=== PATIENT | male | born 1990 | race Caucasian/White ===

== ENCOUNTER 2016-05-27 09:08 | Inpatient (IN) | payer OTHER ==
[2016-05-27 11:04] VITALS: BMI 28.5
--- NOTE | 2016-05-27 11:22 | HP ---
COWS - Scale Resting Pulse: 0= [place] 80 or Below Sweatin=Flushed/Facial Moisture Restless Observation: 3= Extraneous Movement Pupil Size: 2= Moderately Dilated Bone or Joint Aches: 2= Severe Diffuse Aches Runny Nose/ Eye Tearin= Runny Nose/Eyes GI Upset > 30mins: 3= Vomiting/Diarrhea Tremor Observation: 2= Slight Tremor Visible Yawning Observation: 2= >3x During Session Anxiety or Irritability: 2=Irritable/Anxious Goose Flesh Skin: 0=Smooth Skin COWS Score: 20 Admission ROS BHS - HPI Chief Complaint: I NEED HELP TO STOP USING HEROIN Allergies/Adverse Reactions: Allergies Allergy/AdvReac Type Severity Reaction Status Date / Time Penicillins Allergy Severe Hives Verified 05/27/16 11:19 History of Present Illness: THIS 25 YEARS OLD MALE WITH HEROIN DEPENDENCE,WITHDRAWAL SYMPTOM,LAST DETOX 03/09 TO 07/05/15 NOT COMPLETED SEVERAL ADMISSIONS IN THE PAST LONGEST PERIOD OF SOBRIETY Exam Limitations: No Limitations - Ebola screening Have you traveled outside of the country in the last 21 days: No Have you had contact with anyone from an Ebola affected area: No Have you been sick,other than usual withdrawal symptoms: No - Review of Systems Constitutional: See HPI, Chills, Loss of Appetite, Malaise, Night Sweats, Changes in sleep, Weakness EENT: reports: Tearing, Nose Congestion Respiratory: reports: No Symptoms reported Cardiac: reports: Palpitations GI: reports: Nausea, Vomiting, Abdominal cramping : reports: No Symptoms Reported Musculoskeletal: reports: Back Pain, Joint Pain, Muscle Pain Integumentary: reports: Dryness Neuro: reports: Headache, Tremors Endocrine: reports: No Symptoms Reported Hematology: reports: No Symptoms Reported Psychiatric: reports: No Sypmtoms Reported Other Systems: Reviewed and Negative Patient History - Patient Medical History Hx Anemia: No Hx Asthma: No Hx Chronic Obstructive Pulmonary Disease (COPD): No Hx Cancer: No Hx Cardiac Disorders: No Hx Congestive Heart Failure: No Hx Hypertension: No Hx Hypercholesterolemia: No Hx Pacemaker: No HX Cerebrovascular Accident: No Hx Seizures: No Hx Dementia: No Hx Diabetes: No Hx Gastrointestinal Disorders: No Hx Liver Disease: No Hx Genitourinary Disorders: No Hx Sexually Transmitted Disorders: No Hx Renal Disease (ESRD): No Hx Thyroid Disease: No Hx Human Immunodeficiency Virus (HIV): No (negative LAST 12/06 LAST) Hx Hepatitis C: No (negative) Hx Depression: No (denied ) Hx Suicide Attempt: No Hx Bipolar Disorder: No Hx Schizophrenia: No Other Medical History: NO SUICIDAL,NO HOMICIDAL - Patient Surgical History Past Surgical History: No Hx Neurologic Surgery: No Hx Cataract Extraction: No Hx Cardiac Surgery: No Hx Lung Surgery: No Hx Breast Surgery: No Hx Breast Biopsy: No Hx Abdominal Surgery: No Hx Appendectomy: No Hx Cholecystectomy: No Hx Genitourinary Surgery: No Hx Section: No Hx Orthopedic Surgery: No Anesthesia Reaction: No - PPD History Previous Implant?: Yes Documented Results: Negative w/proof Date: 07/06/15 Results: 0 mm PPD to be Administered?: No - Smoking Cessation Smoking history: Current every day smoker Have you smoked in the past 12 months: Yes Aproximately how many cigarettes per day: 20 Cigars Per Day: 0 Hx Chewing Tobacco Use: No Initiated information on smoking cessation: Yes 'Breaking Loose' booklet given: 05/27/16 - Substance & Tx. History Hx Alcohol Use: No Hx Substance Use: Yes Substance Use Type: Heroin Hx Substance Use Treatment: Yes ([facility] 07/04/15 TO 07/05/15) - Substances Abused Heroin Route: Injection Frequency: Daily Amount used: 4 bags Age of first use: 22 Date of Last Use: 05/26/16 Family Disease History - Family Disease History Family History: Denies Admission Physical Exam S - Vital Signs Vital Signs: Vital Signs - 24 hr 05/27/16 11:03 Temperature 95.8 F L Pulse Rate 70 Respiratory 16 Rate Blood Pressure 136/70 - Physical General Appearance: Yes: Moderate Distress, Tremorous, Irritable, Sweating, Anxious HEENTM: Yes: Nasal Congestion Respiratory: Yes: Lungs Clear Neck: Yes: Within Normal Limits Breast: Yes: Within Normal Limits Cardiology: Yes: Within Normal Limits, Regular Rhythm, Regular Rate, S1, S2 Abdominal: Yes: Normal Bowel Sounds, Non Tender, Flat, Soft Genitourinary: Yes: Within Normal Limits Back: Yes: Muscle Spasm Musculoskeletal: Yes: Back pain, Joint Stiffness, Muscle Pain Extremities: Yes: Tremors Neurological: Yes: 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 NML intact, Fully Oriented, Alert, Motor Strength 5/5 Integumentary: Yes: Dry Lymphatic: Yes: Within Normal Limits - Diagnostic (1) Opioid dependence with withdrawal Current Visit: No Status: Acute (2) ADHD (attention deficit hyperactivity disorder) Current Visit: No Status: Chronic (3) Nicotine dependence Current Visit: No Status: Chronic Qualifiers: Nicotine product type: cigarettes Substance use status: uncomplicated Qualified Code(s): F17.210 - Nicotine dependence, cigarettes, uncomplicated Cleared for Admission S - Detox or Rehab [facility] Level of Care: Medically Managed Detox Regimen/Protocol: Methadone S Breath Alcohol Content Breath Alcohol Content: 0 Urine Drug Screen - Results Drug Screen Negative: No Urine Drug Screen Results: OPI-Opiates
[2016-05-27] MEDS ORDERED: MENTHOL/PHENOL 1 EACH UD MM PRN (11:32)
[2016-05-27] MEDS ORDERED: hydrOXYzine PAMOATE 50 MG CAPSULE (FP) PO PRN (11:32)
[2016-05-27] MEDS ORDERED: MAG HYDROX/AL HYDROX/SIMETH 30 ML UNIT-DOSE CUP PO PRN (11:32)
[2016-05-27] MEDS ORDERED: LOPERAMIDE HCL 2 MG CAPSULE PO PRN (11:32)
[2016-05-27] MEDS ORDERED: IBUPROFEN 400 MG TABLET (FP) PO PRN (11:32)
[2016-05-27] MEDS ORDERED: diphenhydrAMINE HCL 50 MG CAPSULE PO PRN (11:32)
[2016-05-27] MEDS ORDERED: P-EPHED 60MG/TRIPROLIDI 2.5MG TABLET PO PRN (11:32)
[2016-05-27] MEDS ORDERED: guaiFENesin/D-METHORPHAN HB 10 ML UNIT-DOSE CUPS PO PRN (11:32)
[2016-05-27] MEDS ORDERED: MAGNESIUM CITRATE 300 ML BOTTLE PO PRN (11:32)
[2016-05-27] MEDS ORDERED: MAGNESIUM HYDROX 2400MG/30ML ORAL SUSPENSION 30 ML CUP PO PRN (11:32)
[2016-05-27] MEDS ORDERED: ACETAMINOPHEN 325 MG TABLET (FP) PO PRN (11:32)
[2016-05-27] MEDS ORDERED: CYCLOBENZAPRINE HCL 10 MG TABLET (FP) PO PRN (11:37)
[2016-05-27] MEDS ORDERED: METHADONE HCL 10 MG TABLET (FOR DETOX USE ONLY) PO ONE ×2 (12:30→23:00)
[2016-05-27] MEDS: diazePAM 5 MG TABLET PO PRN ×3 (12:59→22:12)
--- NOTE | 2016-05-27 16:50 | CONSULT ---
[facility] Psychiatric Consult - Data Date of interview: 05/27/16 Admission source: [facility] Identifying data: This is one of multiple admissions to [facility] for this 25 y/ o male seeking detox treatment on for heroin dependence.Patient is single without children,domiciled,unemployed and supported by relatives. Substance Abuse History: - Smoking Cessation. Smoking history: Current every day smoker. Have you smoked in the past 12 months: Yes. Aproximately how many cigarettes per day: 20. Cigars Per Day: 0. Hx Chewing Tobacco Use: No. Initiated information on smoking cessation: Yes. 'Breaking Loose' booklet given : 05/27/16. - Substance & Tx. History. Hx Alcohol Use: No. Hx Substance Use: Yes. Substance Use Type: Heroin. Hx Substance Use Treatment: Yes ([facility] TO 07/05/15). - Substances Abused. Heroin. Route: Injection. Frequency : Daily. Amount used: 4 bags. Age of first use: 22. Date of Last Use: . Confirmed by patient. Medical History: Patient endorses good general health. Psychiatric History: Diagnosed with ADHD and Bipolar Disorder.Used to be on psychostimulants (ritalin) and aripriprazole.Distant history of psychiatric hospitalizations ([facility]).Mr Lisa declares that he has no psychiatric issues at this time.Sees " no reason for psychiatric contact with psychiatrists or medications." No reported history of suicide attempts. Physical/Sexual Abuse/Trauma History: Patient denies. Additional Comment: Urine Drug Screen Results: OPI-Opiates.Noted. Mental Status Exam - Mental Status Exam Alert and Oriented to: Time, Place, Person Cognitive Function: Good Patient Appearance: Well Groomed Mood: Nervous, Anxious Affect: Mood Congruent Patient Behavior: Passive, Fatigued, Cooperative Speech Pattern: Clear Voice Loudness: Normal Thought Process: Goal Oriented Thought Disorder: Not Present Hallucinations: Denies Suicidal Ideation: Denies Homicidal Ideation: Denies Insight/Judgement: Poor Sleep: Well Appetite: Good Muscle strength/Tone: Normal Gait/Station: Normal Psychiatric Findings - Problem List ([place] 1, 2,3) (1) Opioid dependence with withdrawal Current Visit: Yes Status: Acute (2) Nicotine dependence Current Visit: Yes Status: Acute Qualifiers: Nicotine product type: cigarettes Substance use status: uncomplicated Qualified Code(s): F17.210 - Nicotine dependence, cigarettes, uncomplicated (3) ADHD (attention deficit hyperactivity disorder) Current Visit: No Status: Chronic - Initial Treatment Plan Initial Treatment Plan: Psychoeducation.Detoxification.Observation.
[2016-05-27 20:08] LABS: URINE APPEARANCE CLEAR; URINE BILIRUBIN NEGATIVE (NEGATIVE); URINE BLOOD NEGATIVE (NEGATIVE); URINE COLOR LTYELLOW; URINE GLUCOSE (UA) NEGATIVE (NEGATIVE); URINE KETONE NEGATIVE (NEGATIVE); URINE LEUK ESTERASE NEGATIVE (NEGATIVE); URINE NITRITE NEGATIVE (NEGATIVE); URINE PROTEIN NEGATIVE (NEGATIVE); URINE UROBILINOGEN NEGATIVE E.U./dl (0.2-1.0)
[2016-05-27] MEDS: cloNIDine HCL 0.1 MG TABLET PO SCH (22:10)
[2016-05-27] MEDS: THIAMINE HCL 100 MG TABLET (FP) PO SCH (22:10)
[2016-05-28] MEDS: diazePAM 5 MG TABLET PO PRN ×3 (05:54→22:11)
[2016-05-28] MEDS ORDERED: METHADONE HCL 10 MG TABLET (FOR DETOX USE ONLY) PO ONE (10:00)
[2016-05-28] MEDS: PRENATAL VITAMINS W/ FOLIC ACID TABLET (FP) PO SCH (10:29)
[2016-05-28] MEDS: cloNIDine HCL 0.1 MG TABLET PO SCH ×2 (10:29→22:09)
--- NOTE | 2016-05-28 10:44 | PN ---
BHS COWS - Scale Resting Pulse: 0= [place] 80 or Below Sweatin=Flushed/Facial Moisture Restless Observation: 3= Extraneous Movement Pupil Size: 1= Pupils >than Normal Bone or Joint Aches: 2= Severe Diffuse Aches Runny Nose/ Eye Tearin= Runny Nose/Eyes GI Upset > 30mins: 3= Vomiting/Diarrhea Tremor Observation of Outstretched Hands: 2= Slight Tremor Visible Yawning Observation: 1= 1-2x During Session Anxiety or Irritability: 2=Irritable/Anxious Goose Flesh Skin: 0=Smooth Skin COWS Score: 18 BHS Progress Note (SOAP) Subjective: ALERT,IRRITABLE,ANXIOUS,PAIN IN THE BODY AND BACK,INTERRUPTED SLEEP Objective: 05/28/16 10:42 Vital Signs Temperature 97.8 F 05/28/16 09:45 Pulse Rate 80 05/28/16 09:45 Respiratory Rate 18 05/28/16 09:45 Blood Pressure 117/68 05/28/16 09:45 O2 Sat by Pulse Oximetry (%) EKG SINUS BRADYCARDIA 50/MIN NO CHEST PAIN,NO SOB,NO DIZZINESS Laboratory Last Values Urine Color Ltyellow 05/27/16 19:30 Urine Appearance Clear 05/27/16 19:30 Urine pH 5.0 (5.0-8.0) 05/27/16 19:30 Ur Specific [place] 1.014 (1.001-1.035) 05/27/16 19:30 Urine Protein Negative (NEGATIVE) 05/27/16 19:30 Urine Glucose (UA) Negative (NEGATIVE) 05/27/16 19:30 Urine Ketones Negative (NEGATIVE) 05/27/16 19:30 Urine Blood Negative (NEGATIVE) 05/27/16 19:30 Urine Nitrite Negative (NEGATIVE) 05/27/16 19:30 Urine Bilirubin Negative (NEGATIVE) 05/27/16 19:30 Urine Urobilinogen Negative E.U./dl (0.2-1.0) 05/27/16 19:30 Ur Leukocyte Esterase Negative (NEGATIVE) 05/27/16 19:30 LABS PENDING Assessment: 05/28/16 10:43 WITHDRAWAL SYMPTOM Plan: CONTINUE DETOX
[2016-05-28 11:29] LABS: MCH 30.3 pg (25.7-33.7); MEAN CELL VOLUME 91.8 fl (80-96); MEAN PLT VOLUME 8.8 fl (7.5-11.1); PLATELET COUNT 204 K/MM3 (134-434); RDW 13.9 % (11.9-15.9); WHITE BLOOD COUNT 6.9 K/mm3 (4.0-10.0)
[2016-05-28 11:37] LABS: ALBUMIN 3.8 g/dl (3.4-5.0); ANION GAP 9 (8-16); CO2 30 mmol/L (21-32); GLUCOSE,RANDOM 96 mg/dL (74-106); SGOT/AST 19 U/L (15-37); SGPT/ALT 31 U/L (12-78)
[2016-05-28 11:39] LABS: ALK PHOS 78 U/L (45-117); BILIRUBIN,TOTAL 0.3 mg/dL (0.2-1.0); CALCIUM 9.5 mg/dL (8.5-10.1); TOT PROT 7.4 g/dl (6.4-8.2)
[2016-05-28] MEDS: THIAMINE HCL 100 MG TABLET (FP) PO SCH (22:10)
[2016-05-29] MEDS: diazePAM 5 MG TABLET PO PRN ×2 (03:48→10:20)
[2016-05-29 09:49] VITALS: BP 130/73; PULSE 69; TEMP 96.1
[2016-05-29] MEDS ORDERED: METHADONE HCL 5 MG TABLET (FOR DETOX USE ONLY) PO ONE (10:00)
[2016-05-29] MEDS: PRENATAL VITAMINS W/ FOLIC ACID TABLET (FP) PO SCH (10:21)
[2016-05-29] MEDS: cloNIDine HCL 0.1 MG TABLET PO SCH (10:21)
--- NOTE | 2016-05-29 11:56 | DS ---
[facility] Detox Discharge Summary Admission Date: 05/27/16 Discharge Date: 05/29/16 - History Present History: Opioid Dependence Pertinent Past History: ADHD - Physical Exam Results Vital Signs: Vital Signs Temperature 96.1 F L 05/29/16 09:49 Pulse Rate 69 05/29/16 09:49 Respiratory Rate 18 05/29/16 09:49 Blood Pressure 130/73 05/29/16 09:49 O2 Sat by Pulse Oximetry (%) Pertinent Admission Physical Exam Findings: WITHDRAWAL SX. Laboratory Tests 05/27/16 05/28/16 05/28/16 19:30 06:30 06:30 WBC 6.9 RBC 4.65 Hgb 14.1 Hct 42.7 MCV 91.8 MCHC 33.0 RDW 13.9 Plt Count 204 MPV 8.8 Sodium 142 Potassium 4.6 Chloride 103 Carbon Dioxide 30 Anion Gap 9 BUN 15 Creatinine 1.0 D Creat Clearance w eGFR > 60 Random Glucose 96 Calcium 9.5 Total Bilirubin 0.3 AST 19 ALT 31 Alkaline Phosphatase 78 Total Protein 7.4 Albumin 3.8 Urine Color Ltyellow Urine Appearance Clear Urine pH 5.0 Ur Specific [place] 1.014 Urine Protein Negative Urine Glucose (UA) Negative Urine Ketones Negative Urine Blood Negative Urine Nitrite Negative Urine Bilirubin Negative Urine Urobilinogen Negative Ur Leukocyte Esterase Negative RPR Titer 05/28/16 06:30 WBC RBC Hgb Hct MCV MCHC RDW Plt Count MPV Sodium Potassium Chloride Carbon Dioxide Anion Gap BUN Creatinine Creat Clearance w eGFR Random Glucose Calcium Total Bilirubin AST ALT Alkaline Phosphatase Total Protein Albumin Urine Color Urine Appearance Urine pH Ur Specific [place] Urine Protein Urine Glucose (UA) Urine Ketones Urine Blood Urine Nitrite Urine Bilirubin Urine Urobilinogen Ur Leukocyte Esterase RPR Titer Nonreactive LABS NOTED - Medication Discharge Medications: Ambulatory Orders NK [No Known Home Medication] 07/04/15 - Diagnosis (1) Nicotine dependence Current Visit: Yes Status: Acute Qualifiers: Nicotine product type: cigarettes Substance use status: uncomplicated Qualified Code(s): F17.210 - Nicotine dependence, cigarettes, uncomplicated (2) Opioid dependence with withdrawal Current Visit: Yes Status: Acute (3) ADHD (attention deficit hyperactivity disorder) Current Visit: No Status: Chronic - AMA Did Patient Leave Against Medical Advice: Yes
[2016-05-30] MEDS ORDERED: METHADONE HCL 5 MG TABLET (FOR DETOX USE ONLY) PO ONE (10:00)
[2016-05-31] MEDS ORDERED: METHADONE HCL 10 MG TABLET (FOR DETOX USE ONLY) PO ONE (10:00)
[2016-06-01] MEDS ORDERED: METHADONE HCL 5 MG TABLET (FOR DETOX USE ONLY) PO ONE (06:00)
== END 2016-05-29 11:11 | disposition left against medical advice (07) | DRG 770 ==
LOC: YASAS 09:08 → Y3N 11:34
PROVIDERS: ADMIT Internal Medicine; ATTEND Internal Medicine
PROC: HZ2ZZZZ Detoxification Services for Substance Abuse Treatment (ICD-10-PCS; principal; 2016-05-27)
DX: F11.23 Opioid dependence with withdrawal (principal); F17.210 Nicotine dependence, cigarettes, uncomplicated; F90.9 Attention-deficit hyperactivity disorder, unspecified type; R00.1 Bradycardia, unspecified
CPT/HCPCS: 36415; 80053; 81003; 85027; 86593; 93005; 93010

== ENCOUNTER 2016-07-13 10:26 | Inpatient (IN) | payer OTHER ==
[2016-07-13 11:11] VITALS: BMI 29.0
--- NOTE | 2016-07-13 12:33 | HP ---
COWS - Scale Resting Pulse: 1= [place] 81-100 Sweatin= Chills/Flushing Restless Observation: 1= Difficult to Sit Still Pupil Size: 0= Normal to Room Light Bone or Joint Aches: 2= Severe Diffuse Aches Runny Nose/ Eye Tearin= None GI Upset > 30mins: 2= Nausea/Diarrhea Tremor Observation: 2= Slight Tremor Visible Yawning Observation: 1= 1-2x During Session Anxiety or Irritability: 2=Irritable/Anxious Goose Flesh Skin: 3=Piloerection COWS Score: 15 Admission ROS S - HPI Chief Complaint: "I'm here to stop my use of Heroin and to get clean." Pt. here to Detox from Heroin. Allergies/Adverse Reactions: Allergies Allergy/AdvReac Type Severity Reaction Status Date / Time Penicillins Allergy Severe Hives Verified 07/13/16 11:18 History of Present Illness: Pt. is a 25 YO male here to Detox from Heroin. Pt. has had several previous Detox admissions at [facility]. Exam Limitations: No Limitations - Ebola screening Have you traveled outside of the country in the last 21 days: No Have you had contact with anyone from an Ebola affected area: No Have you been sick,other than usual withdrawal symptoms: No Do you have a fever: No - Review of Systems Constitutional: Chills, Diaphoresis, Fever, Loss of Appetite, Malaise, Night Sweats, Changes in sleep, Unexplained wgt Loss EENT: reports: Other (Bitter taste in mouth.) Respiratory: reports: No Symptoms reported Cardiac: reports: No Symptoms Reported GI: reports: Diarrhea, Nausea, Poor Appetite : reports: No Symptoms Reported Musculoskeletal: reports: No Symptoms Reported Integumentary: reports: No Symptoms Reported Neuro: reports: Tremors Endocrine: reports: No Symptoms Reported Hematology: reports: No Symptoms Reported Psychiatric: reports: Judgement Intact, Mood/Affect Appropiate, Orientated x3, Anxious, Depressed (Patient does not wish to see a Psychiatrist at this time.) Other Systems: Reviewed and Negative Patient History - Patient Medical History Hx Anemia: No Hx Asthma: No Hx Chronic Obstructive Pulmonary Disease (COPD): No Hx Cancer: No Hx Cardiac Disorders: No Hx Congestive Heart Failure: No Hx Hypertension: No Hx Hypercholesterolemia: No Hx Pacemaker: No HX Cerebrovascular Accident: No Hx Seizures: No Hx Dementia: No Hx Diabetes: No Hx Gastrointestinal Disorders: No Hx Liver Disease: No Hx Genitourinary Disorders: No Hx Sexually Transmitted Disorders: No Hx Renal Disease (ESRD): No Hx Thyroid Disease: No Hx Human Immunodeficiency Virus (HIV): No (negative LAST 12/06 LAST) Hx Hepatitis C: No (negative; Last Tested: Approx. 6 months ago.) Hx Depression: No (Believes to be due to drug use; no previous treatment.) Hx Suicide Attempt: No (PATIENT DENIES CURRENT SI / HI.) Hx Bipolar Disorder: No Hx Schizophrenia: No - Patient Surgical History Past Surgical History: No Hx Neurologic Surgery: No Hx Cataract Extraction: No Hx Cardiac Surgery: No Hx Lung Surgery: No Hx Breast Surgery: No Hx Breast Biopsy: No Hx Abdominal Surgery: No Hx Appendectomy: No Hx Cholecystectomy: No Hx Genitourinary Surgery: No Hx Section: No Hx Orthopedic Surgery: No Anesthesia Reaction: No - PPD History Previous Implant?: Yes Documented Results: Negative w/o proof Implanted On Prior [facility] Admission?: Yes Date: 07/06/15 Results: 0 mm PPD to be Administered?: Yes - Reproductive History Patient is a Female of Child Bearing Age (11 -55 yrs old): No (PATIENT IS MALE.) - Smoking Cessation Smoking history: Current every day smoker Have you smoked in the past 12 months: Yes Aproximately how many cigarettes per day: 20 Cigars Per Day: 0 Hx Chewing Tobacco Use: No Initiated information on smoking cessation: Yes 'Breaking Loose' booklet given: 07/13/16 (GIVEN ON UNIT.) - Substance & Tx. History Hx Alcohol Use: No Hx Substance Use: Yes Substance Use Type: Heroin Hx Substance Use Treatment: Yes (Previous Detox admissions at [facility].) - Substances Abused Heroin Route: Injection Frequency: Daily Amount used: 5 bags Age of first use: 23 Date of Last Use: 07/12/16 Family Disease History - Family Disease History Family History: Denies Admission Physical Exam S - Vital Signs Vital Signs: Vital Signs - 24 hr 07/13/16 11:07 Temperature 98.2 F Pulse Rate 92 H Respiratory 20 Rate Blood Pressure 142/90 - Physical General Appearance: Yes: No Apparent Distress, Nourished, Tremorous, Anxious HEENTM: Yes: Hearing grossly Normal, Normocephalic, Normal Voice, COREY, Pharynx Normal Respiratory: Yes: Chest Non-Tender, Lungs Clear, Normal Breath Sounds, No Respiratory Distress Neck: Yes: No masses,lesions,Nodules, Supple, Trachea in good position Breast: Yes: Breast Exam Deferred Cardiology: Yes: Regular Rhythm, Regular Rate, S1, S2 Abdominal: Yes: Normal Bowel Sounds, Non Tender, Flat, Soft Genitourinary: Yes: Within Normal Limits Back: Yes: Normal Inspection Musculoskeletal: Yes: Gait Steady, Joint Stiffness, Muscle Pain Extremities: Yes: Normal Range of Motion, Non-Tender, Tremors Neurological: Yes: Fully Oriented, Alert, Normal Mood/Affect, Normal Response Integumentary: Yes: Normal Color, Dry, Warm, Track Johns (2 noted in cubital crease of Left Arm. Both red and swollen. No tenderness, bleeding, or unusual discharge noted at either site.) Lymphatic: Yes: Within Normal Limits - Diagnostic (1) Nicotine dependence Current Visit: Yes Status: Chronic Qualifiers: Nicotine product type: cigarettes Substance use status: uncomplicated Qualified Code(s): F17.210 - Nicotine dependence, cigarettes, uncomplicated (2) Opioid dependence with withdrawal Current Visit: Yes Status: Acute (3) Abscess of left arm Current Visit: Yes Status: Acute Cleared for Admission [facility] - Detox or Rehab [facility] Level of Care: Medically Managed Detox Regimen/Protocol: Methadone [facility] Breath Alcohol Content Breath Alcohol Content: 0 Urine Drug Screen - Results Drug Screen Negative: No Urine Drug Screen Results: OPI-Opiates, OXY-Oxycodone
[2016-07-13] MEDS ORDERED: MAG HYDROX/AL HYDROX/SIMETH 30 ML UNIT-DOSE CUP PO PRN (12:53)
[2016-07-13] MEDS ORDERED: IBUPROFEN 400 MG TABLET (FP) PO PRN (12:53)
[2016-07-13] MEDS ORDERED: P-EPHED 60MG/TRIPROLIDI 2.5MG TABLET PO PRN (12:53)
[2016-07-13] MEDS ORDERED: ACETAMINOPHEN 325 MG TABLET (FP) PO PRN (12:53)
[2016-07-13] MEDS ORDERED: MAGNESIUM HYDROX 2400MG/30ML ORAL SUSPENSION 30 ML CUP PO PRN (12:53)
[2016-07-13] MEDS ORDERED: guaiFENesin/D-METHORPHAN HB 10 ML UNIT-DOSE CUPS PO PRN (12:53)
[2016-07-13] MEDS ORDERED: LOPERAMIDE HCL 2 MG CAPSULE PO PRN (12:53)
[2016-07-13] MEDS ORDERED: hydrOXYzine PAMOATE 50 MG CAPSULE (FP) PO PRN (12:53)
[2016-07-13] MEDS ORDERED: MAGNESIUM CITRATE 300 ML BOTTLE PO PRN (12:53)
[2016-07-13] MEDS ORDERED: MENTHOL/PHENOL 1 EACH UD MM PRN (12:53)
[2016-07-13] MEDS ORDERED: METHADONE HCL 10 MG TABLET (FOR DETOX USE ONLY) PO ONE ×2 (12:53→23:00)
[2016-07-13] MEDS ORDERED: NICOTINE POLACRILEX 2 MG GUM BC PRN (12:53)
[2016-07-13] MEDS ORDERED: BACITRACIN 0.9 GM PACKET ONE (13:41)
[2016-07-13] MEDS: NICOTINE 21 MG/24 HOURS TOPICAL PATCH TD SCH (13:46)
[2016-07-13] MEDS: SULFAMETHOXAZOLE/TRIMETHOPRIM 800MG/160MG D.S. TABLET PO SCH ×2 (13:46→22:30)
[2016-07-13] MEDS: diazePAM 5 MG TABLET PO PRN ×3 (13:46→22:31)
[2016-07-13] MEDS ORDERED: BACITRACIN 30 GM TUBE TOPICAL OINTMENT TP SCH (14:00)
[2016-07-13 16:49] LABS: URINE APPEARANCE CLEAR; URINE BILIRUBIN NEGATIVE (NEGATIVE); URINE BLOOD NEGATIVE (NEGATIVE); URINE COLOR LTYELLOW; URINE GLUCOSE (UA) NEGATIVE (NEGATIVE); URINE KETONE NEGATIVE (NEGATIVE); URINE LEUK ESTERASE NEGATIVE (NEGATIVE); URINE NITRITE NEGATIVE (NEGATIVE); URINE PROTEIN NEGATIVE (NEGATIVE); URINE UROBILINOGEN NEGATIVE E.U./dl (0.2-1.0)
[2016-07-13] MEDS: BACITRACIN 0.9 GM PACKET TP SCH (22:29)
[2016-07-13] MEDS: THIAMINE HCL 100 MG TABLET (FP) PO SCH (22:30)
[2016-07-13] MEDS: diphenhydrAMINE HCL 50 MG CAPSULE PO PRN (22:31)
--- NOTE | 2016-07-14 00:47 | EKG ---
Test Reason : Blood Pressure : / mmHG Vent. Rate : 051 BPM Atrial Rate : 051 BPM P-R Int : 122 ms QRS Dur : 104 ms QT Int : 404 ms P-R-T Axes : 055 077 044 degrees QTc Int : 372 ms SINUS BRADYCARDIA OTHERWISE NORMAL ECG NO PREVIOUS ECGS AVAILABLE Confirmed by YANDY YUSUF MD ([id number]) on 07/14/2016 12:46:53 AM Referred By: Confirmed By:YANDY YUSUF MD
[2016-07-14] MEDS: BACITRACIN 0.9 GM PACKET TP SCH ×3 (07:34→22:29)
[2016-07-14] MEDS ORDERED: METHADONE HCL 10 MG TABLET (FOR DETOX USE ONLY) PO ONE (10:00)
[2016-07-14 10:10] LABS: MCH 30.1 pg (25.7-33.7); MCHC 32.9 g/dl (32.0-35.9); MEAN CELL VOLUME 91.3 fl (80-96); MEAN PLT VOLUME 8.7 fl (7.5-11.1); PLATELET COUNT 179 K/MM3 (134-434); RDW 13.8 % (11.9-15.9); WHITE BLOOD COUNT 5.2 K/mm3 (4.0-10.0)
[2016-07-14 10:14] LABS: ALBUMIN 3.6 g/dl (3.4-5.0); ALK PHOS 74 U/L (45-117); ANION GAP 7 (8-16); BILIRUBIN,TOTAL 0.2 mg/dL (0.2-1.0); CALCIUM 9.1 mg/dL (8.5-10.1); CO2 27 mmol/L (21-32); CREATININE 0.9 mg/dL (0.7-1.3); GLUCOSE,RANDOM 95 mg/dL (74-106); SGOT/AST 12 U/L (15-37); SGPT/ALT 20 U/L (12-78); TOT PROT 6.9 g/dl (6.4-8.2)
[2016-07-14] MEDS: diazePAM 5 MG TABLET PO PRN ×2 (10:33→22:30)
[2016-07-14] MEDS: PRENATAL VITAMINS W/ FOLIC ACID TABLET (FP) PO SCH (10:33)
[2016-07-14] MEDS: NICOTINE 21 MG/24 HOURS TOPICAL PATCH TD SCH (11:09)
[2016-07-14] MEDS: SULFAMETHOXAZOLE/TRIMETHOPRIM 800MG/160MG D.S. TABLET PO SCH ×2 (11:09→22:29)
--- NOTE | 2016-07-14 17:26 | PN ---
BHS COWS - Scale Resting Pulse: 0= [place] 80 or Below Sweatin=Flushed/Facial Moisture Restless Observation: 1= Difficult to Sit Still Pupil Size: 0= Normal to Room Light Bone or Joint Aches: 1= Mild Discomfort Runny Nose/ Eye Tearin= Nasal Congestion GI Upset > 30mins: 0= None Tremor Observation of Outstretched Hands: 2= Slight Tremor Visible Yawning Observation: 1= 1-2x During Session Anxiety or Irritability: 2=Irritable/Anxious Goose Flesh Skin: 3=Piloerection COWS Score: 13 BHS Progress Note (SOAP) Subjective: Sweating, Interrupted Sleep. Objective: PT. A & O X 3, OBSERVED AMBULATING ON UNIT. 07/14/16 17:24 Vital Signs Temperature 96.0 F L 07/14/16 13:04 Pulse Rate 70 07/14/16 13:04 Respiratory Rate 20 07/14/16 13:04 Blood Pressure 123/77 07/14/16 13:04 O2 Sat by Pulse Oximetry (%) Laboratory Last Values WBC 5.2 K/mm3 (4.0-10.0) 07/14/16 06:15 RBC 4.60 M/mm3 (4.00-5.60) 07/14/16 06:15 Hgb 13.8 GM/dL (11.7-16.9) 07/14/16 06:15 Hct 42.0 % (35.4-49) 07/14/16 06:15 MCV 91.3 fl (80-96) 07/14/16 06:15 MCHC 32.9 g/dl (32.0-35.9) 07/14/16 06:15 RDW 13.8 % (11.9-15.9) 07/14/16 06:15 Plt Count 179 K/MM3 (134-434) 07/14/16 06:15 MPV 8.7 fl (7.5-11.1) 07/14/16 06:15 Sodium 140 mmol/L (136-145) 07/14/16 06:15 Potassium 4.7 mmol/L (3.5-5.1) 07/14/16 06:15 Chloride 106 mmol/L (98-107) 07/14/16 06:15 Carbon Dioxide 27 mmol/L (21-32) 07/14/16 06:15 Anion Gap 7 (8-16) L 07/14/16 06:15 BUN 17 mg/dL (7-18) 07/14/16 06:15 Creatinine 0.9 mg/dL (0.7-1.3) 07/14/16 06:15 Creat Clearance w eGFR > 60 (>60) 07/14/16 06:15 Random Glucose 95 mg/dL (74-106) 07/14/16 06:15 Calcium 9.1 mg/dL (8.5-10.1) 07/14/16 06:15 Total Bilirubin 0.2 mg/dL (0.2-1.0) D 07/14/16 06:15 AST 12 U/L (15-37) L D 07/14/16 06:15 ALT 20 U/L (12-78) D 07/14/16 06:15 Alkaline Phosphatase 74 U/L (45-117) 07/14/16 06:15 Total Protein 6.9 g/dl (6.4-8.2) 07/14/16 06:15 Albumin 3.6 g/dl (3.4-5.0) 07/14/16 06:15 Urine Color Ltyellow 07/13/16 16:28 Urine Appearance Clear 07/13/16 16:28 Urine pH 6.0 (5.0-8.0) 07/13/16 16:28 Ur Specific [place] 1.023 (1.001-1.035) 07/13/16 16:28 Urine Protein Negative (NEGATIVE) 07/13/16 16:28 Urine Glucose (UA) Negative (NEGATIVE) 07/13/16 16:28 Urine Ketones Negative (NEGATIVE) 07/13/16 16:28 Urine Blood Negative (NEGATIVE) 07/13/16 16:28 Urine Nitrite Negative (NEGATIVE) 07/13/16 16:28 Urine Bilirubin Negative (NEGATIVE) 07/13/16 16:28 Urine Urobilinogen Negative E.U./dl (0.2-1.0) 07/13/16 16:28 Ur Leukocyte Esterase Negative (NEGATIVE) 07/13/16 16:28 RPR Titer Nonreactive (NONREACTIVE) 07/14/16 06:15 LABS NOTED. Assessment: WITHDRAWAL SYMPTOMS. Plan: CONTINUE DETOX.
[2016-07-14] MEDS: diphenhydrAMINE HCL 50 MG CAPSULE PO PRN (22:29)
[2016-07-14] MEDS: THIAMINE HCL 100 MG TABLET (FP) PO SCH (22:29)
[2016-07-15] MEDS: BACITRACIN 0.9 GM PACKET TP SCH ×3 (06:10→22:32)
[2016-07-15] MEDS ORDERED: METHADONE HCL 5 MG TABLET (FOR DETOX USE ONLY) PO ONE (10:00)
[2016-07-15] MEDS: SULFAMETHOXAZOLE/TRIMETHOPRIM 800MG/160MG D.S. TABLET PO SCH ×2 (10:38→22:32)
[2016-07-15] MEDS: PRENATAL VITAMINS W/ FOLIC ACID TABLET (FP) PO SCH (10:38)
[2016-07-15] MEDS: diazePAM 5 MG TABLET PO PRN ×2 (10:38→22:32)
[2016-07-15] MEDS: NICOTINE 21 MG/24 HOURS TOPICAL PATCH TD SCH (10:38)
--- NOTE | 2016-07-15 11:25 | PN ---
BHS COWS - Scale Resting Pulse: 0= [place] 80 or Below Sweatin= Chills/Flushing Restless Observation: 3= Extraneous Movement Pupil Size: 2= Moderately Dilated Bone or Joint Aches: 4=Acute Joint/Muscle Pain Runny Nose/ Eye Tearin= Nasal Congestion GI Upset > 30mins: 1= Stomach Cramp Tremor Observation of Outstretched Hands: 2= Slight Tremor Visible Yawning Observation: 2= >3x During Session Anxiety or Irritability: 2=Irritable/Anxious Goose Flesh Skin: 0=Smooth Skin COWS Score: 18 BHS Progress Note (SOAP) Subjective: ANXIETY, SWEATS/CHILLS. Objective: 07/15/16 11:25 Vital Signs Temperature 96.8 F L 07/15/16 11:12 Pulse Rate 67 07/15/16 11:12 Respiratory Rate 19 07/15/16 11:12 Blood Pressure 145/73 07/15/16 11:12 O2 Sat by Pulse Oximetry (%) Laboratory Last Values WBC 5.2 K/mm3 (4.0-10.0) 07/14/16 06:15 RBC 4.60 M/mm3 (4.00-5.60) 07/14/16 06:15 Hgb 13.8 GM/dL (11.7-16.9) 07/14/16 06:15 Hct 42.0 % (35.4-49) 07/14/16 06:15 MCV 91.3 fl (80-96) 07/14/16 06:15 MCHC 32.9 g/dl (32.0-35.9) 07/14/16 06:15 RDW 13.8 % (11.9-15.9) 07/14/16 06:15 Plt Count 179 K/MM3 (134-434) 07/14/16 06:15 MPV 8.7 fl (7.5-11.1) 07/14/16 06:15 Sodium 140 mmol/L (136-145) 07/14/16 06:15 Potassium 4.7 mmol/L (3.5-5.1) 07/14/16 06:15 Chloride 106 mmol/L (98-107) 07/14/16 06:15 Carbon Dioxide 27 mmol/L (21-32) 07/14/16 06:15 Anion Gap 7 (8-16) L 07/14/16 06:15 BUN 17 mg/dL (7-18) 07/14/16 06:15 Creatinine 0.9 mg/dL (0.7-1.3) 07/14/16 06:15 Creat Clearance w eGFR > 60 (>60) 07/14/16 06:15 Random Glucose 95 mg/dL (74-106) 07/14/16 06:15 Calcium 9.1 mg/dL (8.5-10.1) 07/14/16 06:15 Total Bilirubin 0.2 mg/dL (0.2-1.0) D 07/14/16 06:15 AST 12 U/L (15-37) L D 07/14/16 06:15 ALT 20 U/L (12-78) D 07/14/16 06:15 Alkaline Phosphatase 74 U/L (45-117) 07/14/16 06:15 Total Protein 6.9 g/dl (6.4-8.2) 07/14/16 06:15 Albumin 3.6 g/dl (3.4-5.0) 07/14/16 06:15 Urine Color Ltyellow 07/13/16 16:28 Urine Appearance Clear 07/13/16 16:28 Urine pH 6.0 (5.0-8.0) 07/13/16 16:28 Ur Specific [place] 1.023 (1.001-1.035) 07/13/16 16:28 Urine Protein Negative (NEGATIVE) 07/13/16 16:28 Urine Glucose (UA) Negative (NEGATIVE) 07/13/16 16:28 Urine Ketones Negative (NEGATIVE) 07/13/16 16:28 Urine Blood Negative (NEGATIVE) 07/13/16 16:28 Urine Nitrite Negative (NEGATIVE) 07/13/16 16:28 Urine Bilirubin Negative (NEGATIVE) 07/13/16 16:28 Urine Urobilinogen Negative E.U./dl (0.2-1.0) 07/13/16 16:28 Ur Leukocyte Esterase Negative (NEGATIVE) 07/13/16 16:28 RPR Titer Nonreactive (NONREACTIVE) 07/14/16 06:15 Assessment: 07/15/16 11:25 WITHDRAWAL SX Plan: CONTINUE DETOX
[2016-07-15] MEDS: THIAMINE HCL 100 MG TABLET (FP) PO SCH (22:31)
[2016-07-15] MEDS: diphenhydrAMINE HCL 50 MG CAPSULE PO PRN (22:33)
[2016-07-16] MEDS: BACITRACIN 0.9 GM PACKET TP SCH ×3 (06:16→22:46)
[2016-07-16] MEDS ORDERED: METHADONE HCL 5 MG TABLET (FOR DETOX USE ONLY) PO ONE (10:00)
[2016-07-16] MEDS: PRENATAL VITAMINS W/ FOLIC ACID TABLET (FP) PO SCH (10:42)
[2016-07-16] MEDS: SULFAMETHOXAZOLE/TRIMETHOPRIM 800MG/160MG D.S. TABLET PO SCH ×2 (10:42→22:46)
[2016-07-16] MEDS: NICOTINE 21 MG/24 HOURS TOPICAL PATCH TD SCH (10:42)
--- NOTE | 2016-07-16 11:59 | PN ---
BHS Progress Note (SOAP) Subjective: DECREASED ANXIETY,SWEATS/CHILLS. Objective: 07/16/16 11:58 Vital Signs Temperature 95.9 F L 07/16/16 10:53 Pulse Rate 54 L 07/16/16 10:53 Respiratory Rate 20 07/16/16 10:53 Blood Pressure 126/75 07/16/16 10:53 O2 Sat by Pulse Oximetry (%) Assessment: 07/16/16 11:58 WITHDRAWAL SX Plan: CONTINUE DETOX
[2016-07-16] MEDS: diphenhydrAMINE HCL 50 MG CAPSULE PO PRN (22:46)
[2016-07-16] MEDS: THIAMINE HCL 100 MG TABLET (FP) PO SCH (22:46)
[2016-07-17] MEDS: BACITRACIN 0.9 GM PACKET TP SCH (06:39)
--- NOTE | 2016-07-17 09:51 | DS ---
[facility] Detox Discharge Summary Admission Date: 07/13/16 Discharge Date: 07/17/16 - History Present History: Opioid Dependence Additional Comments: ALERT O X 3. NAD. PT WANTS TO FOLLOW UP WITH DSS TODAYFOR LONG-TERM PLACEMENT. Pertinent Past History: UNREMARKABLE PMHX HX ADHD - Physical Exam Results Vital Signs: Vital Signs Temperature 96.3 F L 07/17/16 06:55 Pulse Rate 63 07/17/16 06:55 Respiratory Rate 18 07/17/16 06:55 Blood Pressure 124/72 07/17/16 06:55 O2 Sat by Pulse Oximetry (%) Pertinent Admission Physical Exam Findings: WITHDRAWAL SX Laboratory Last Values WBC 5.2 K/mm3 (4.0-10.0) 07/14/16 06:15 RBC 4.60 M/mm3 (4.00-5.60) 07/14/16 06:15 Hgb 13.8 GM/dL (11.7-16.9) 07/14/16 06:15 Hct 42.0 % (35.4-49) 07/14/16 06:15 MCV 91.3 fl (80-96) 07/14/16 06:15 MCHC 32.9 g/dl (32.0-35.9) 07/14/16 06:15 RDW 13.8 % (11.9-15.9) 07/14/16 06:15 Plt Count 179 K/MM3 (134-434) 07/14/16 06:15 MPV 8.7 fl (7.5-11.1) 07/14/16 06:15 Sodium 140 mmol/L (136-145) 07/14/16 06:15 Potassium 4.7 mmol/L (3.5-5.1) 07/14/16 06:15 Chloride 106 mmol/L (98-107) 07/14/16 06:15 Carbon Dioxide 27 mmol/L (21-32) 07/14/16 06:15 Anion Gap 7 (8-16) L 07/14/16 06:15 BUN 17 mg/dL (7-18) 07/14/16 06:15 Creatinine 0.9 mg/dL (0.7-1.3) 07/14/16 06:15 Creat Clearance w eGFR > 60 (>60) 07/14/16 06:15 Random Glucose 95 mg/dL (74-106) 07/14/16 06:15 Calcium 9.1 mg/dL (8.5-10.1) 07/14/16 06:15 Total Bilirubin 0.2 mg/dL (0.2-1.0) D 07/14/16 06:15 AST 12 U/L (15-37) L D 07/14/16 06:15 ALT 20 U/L (12-78) D 07/14/16 06:15 Alkaline Phosphatase 74 U/L (45-117) 07/14/16 06:15 Total Protein 6.9 g/dl (6.4-8.2) 07/14/16 06:15 Albumin 3.6 g/dl (3.4-5.0) 07/14/16 06:15 Urine Color Ltyellow 07/13/16 16:28 Urine Appearance Clear 07/13/16 16:28 Urine pH 6.0 (5.0-8.0) 07/13/16 16:28 Ur Specific [place] 1.023 (1.001-1.035) 07/13/16 16:28 Urine Protein Negative (NEGATIVE) 07/13/16 16:28 Urine Glucose (UA) Negative (NEGATIVE) 07/13/16 16:28 Urine Ketones Negative (NEGATIVE) 07/13/16 16:28 Urine Blood Negative (NEGATIVE) 07/13/16 16:28 Urine Nitrite Negative (NEGATIVE) 07/13/16 16:28 Urine Bilirubin Negative (NEGATIVE) 07/13/16 16:28 Urine Urobilinogen Negative E.U./dl (0.2-1.0) 07/13/16 16:28 Ur Leukocyte Esterase Negative (NEGATIVE) 07/13/16 16:28 RPR Titer Nonreactive (NONREACTIVE) 07/14/16 06:15 Hepatitis C Antibody 0.1 s/co ratio (0.0-0.9) 07/14/16 06:15 - Treatment Hospital Course: Detox Protocol Followed, Detoxed Safely, Responded well, Discharged Condition Good - Medication Discharge Medications: Ambulatory Orders NK [No Known Home Medication] 07/04/15 - Diagnosis (1) Opioid dependence with withdrawal Current Visit: Yes Status: Acute (2) Nicotine dependence Current Visit: Yes Status: Chronic Qualifiers: Nicotine product type: cigarettes Substance use status: uncomplicated Qualified Code(s): F17.210 - Nicotine dependence, cigarettes, uncomplicated (3) Abscess of left arm Current Visit: Yes Status: Acute (4) ADHD (attention deficit hyperactivity disorder) Current Visit: Yes Status: Chronic - AMA Did Patient Leave Against Medical Advice: No
[2016-07-17] MEDS ORDERED: METHADONE HCL 10 MG TABLET (FOR DETOX USE ONLY) PO ONE (10:00)
[2016-07-17 10:11] VITALS: BP 136/81; PULSE 90; TEMP 96.5
[2016-07-18] MEDS ORDERED: METHADONE HCL 5 MG TABLET (FOR DETOX USE ONLY) PO ONE (06:00)
== END 2016-07-17 09:27 | disposition home or self-care (01) | DRG 773 ==
LOC: YASAS 10:26 → Y3N 12:16
PROVIDERS: ADMIT Internal Medicine; ATTEND Internal Medicine
PROC: HZ2ZZZZ Detoxification Services for Substance Abuse Treatment (ICD-10-PCS; principal; 2016-07-13)
DX: F11.23 Opioid dependence with withdrawal (principal); F17.210 Nicotine dependence, cigarettes, uncomplicated; F90.9 Attention-deficit hyperactivity disorder, unspecified type; L02.413 Cutaneous abscess of right upper limb
CPT/HCPCS: 36415; 80053; 81003; 85027; 86593; 93005; 93010

== ENCOUNTER 2016-09-29 12:09 | Inpatient (IN) | payer OTHER ==
[2016-09-29 14:56] VITALS: BMI 27.1
--- NOTE | 2016-09-29 15:39 | HP ---
COWS - Scale Resting Pulse: 1= [place] 81-100 Sweatin= Chills/Flushing Restless Observation: 3= Extraneous Movement Pupil Size: 2= Moderately Dilated Bone or Joint Aches: 4=Acute Joint/Muscle Pain Runny Nose/ Eye Tearin= Runny Nose/Eyes GI Upset > 30mins: 3= Vomiting/Diarrhea Tremor Observation: 1= Tremor [place], Not Seen Yawning Observation: 1= 1-2x During Session Anxiety or Irritability: 2=Irritable/Anxious Goose Flesh Skin: 0=Smooth Skin COWS Score: 20 Admission ROS BHS - HPI Chief Complaint: DETOX TX FOR HEROIN DEPENDENCE Allergies/Adverse Reactions: Allergies Allergy/AdvReac Type Severity Reaction Status Date / Time Penicillins Allergy Severe Hives Verified 09/29/16 15:22 History of Present Illness: 26 Y/O MALE WITH A HX OF HEROIN AND MARIJUANA DEPENDENCE SEEKING DETOX [place] Exam Limitations: No Limitations - Ebola screening Have you traveled outside of the country in the last 21 days: No Have you had contact with anyone from an Ebola affected area: No Have you been sick,other than usual withdrawal symptoms: No - Review of Systems Constitutional: Chills, Night Sweats, Changes in sleep, Unintentional Wgt. Loss EENT: reports: Tearing, Nose Congestion, Dental Problems (MISSING/CRACKED TEETH/ EXTRACTIONS) Respiratory: reports: No Symptoms reported Cardiac: reports: Lightheadedness GI: reports: Constipated, Diarrhea, Nausea, Poor Fluid Intake, Vomiting : reports: Dysuria Musculoskeletal: reports: Back Pain, Joint Pain, Muscle Pain Integumentary: reports: Bruising (IVD INJ SITES ON BOTH ELBOWS) Neuro: reports: Headache (HX MIGRAINES), Numbness, Tingling, Tremors, Dizziness Endocrine: reports: No Symptoms Reported Hematology: reports: No Symptoms Reported Psychiatric: reports: Orientated x3, Anxious, Depressed Other Systems: Reviewed and Negative Patient History - Patient Medical History Hx Anemia: No Hx Asthma: No Hx Chronic Obstructive Pulmonary Disease (COPD): No Hx Cancer: No Hx Cardiac Disorders: No Hx Congestive Heart Failure: No Hx Hypertension: No Hx Hypercholesterolemia: No Hx Pacemaker: No HX Cerebrovascular Accident: No Hx Seizures: No Hx Dementia: No Hx Diabetes: No Hx Gastrointestinal Disorders: No Hx Liver Disease: No Hx Genitourinary Disorders: No Hx Sexually Transmitted Disorders: No Hx Renal Disease (ESRD): No Hx Thyroid Disease: No Hx Human Immunodeficiency Virus (HIV): No (NEGATIVE HX;06/2016) Hx Hepatitis C: No (NEGATIVE HX;06/2016) Hx Depression: Yes (ADHD) Hx Suicide Attempt: No (DENIES) Hx Bipolar Disorder: No Hx Schizophrenia: No - Patient Surgical History Past Surgical History: No Hx Neurologic Surgery: No Hx Cataract Extraction: No Hx Cardiac Surgery: No Hx Lung Surgery: No Hx Breast Surgery: No Hx Breast Biopsy: No Hx Abdominal Surgery: No Hx Appendectomy: No Hx Cholecystectomy: No Hx Genitourinary Surgery: No Hx Orthopedic Surgery: No Anesthesia Reaction: No - PPD History Previous Implant?: Yes Documented Results: Negative w/proof Implanted On Prior [facility] Admission?: Yes Date: 07/15/16 Results: 0 mm PPD to be Administered?: No - Reproductive History Patient is a Female of Child Bearing Age (11 -55 yrs old): No (MALE) - Smoking Cessation Smoking history: Current every day smoker Have you smoked in the past 12 months: Yes Aproximately how many cigarettes per day: 10 Cigars Per Day: 0 Hx Chewing Tobacco Use: No Initiated information on smoking cessation: Yes 'Breaking Loose' booklet given: 09/29/16 - Substance & Tx. History Hx Alcohol Use: No (DENIES) Hx Substance Use: Yes (HEROIN/MARIJUANA) Substance Use Type: Heroin, Marijuana Hx Substance Use Treatment: Yes ([facility]OX) - Substances Abused Heroin Route: Injection Frequency: Daily Amount used: 4-10 bags Age of first use: 22 Date of Last Use: 09/28/16 Marijuana/Hashish Route: Smoking Frequency: 1-2 times per week Amount used: $10 Age of first use: 15 Date of Last Use: 09/29/16 Family Disease History - Family Disease History Family Disease History: Other: Mother (HTN;ADDICTION) Admission Physical Exam BHS - Vital Signs Vital Signs: Vital Signs - 24 hr 09/29/16 14:54 Temperature 97.1 F L Pulse Rate 89 Respiratory 89 H Rate Blood Pressure 131/82 - Physical General Appearance: Yes: Moderate Distress, Irritable, Anxious HEENTM: Yes: EOMI, Normocephalic, COREY, Pharynx Normal Respiratory: Yes: Chest Non-Tender, Lungs Clear, Normal Breath Sounds, No Respiratory Distress Neck: Yes: Supple, Trachea in good position Breast: Yes: Breast Exam Deferred Cardiology: Yes: Regular Rhythm, Regular Rate, S1, S2 Abdominal: Yes: Normal Bowel Sounds, Non Tender, Flat, Soft Genitourinary: Yes: Other (N/C) Back: Yes: Within Normal Limits Musculoskeletal: Yes: full range of Motion, Gait Steady Extremities: Yes: Normal Range of Motion, Non-Tender Neurological: Yes: customer solutions coordinator II-XII NML intact, Fully Oriented, Alert, Motor Strength 5/5 Integumentary: Yes: Dry, Warm, Track Ba (ON BOTH ELBOWS) Lymphatic: Yes: Within Normal Limits - Diagnostic (1) Opioid dependence with withdrawal Current Visit: Yes Status: Acute (2) Nicotine dependence Current Visit: Yes Status: Acute Qualifiers: Nicotine product type: cigarettes Substance use status: in withdrawal Qualified Code(s): F17.213 - Nicotine dependence, cigarettes, with withdrawal (3) Cannabis dependence, uncomplicated Current Visit: Yes Status: Acute (4) Track ba due to intravenous drug abuse Current Visit: Yes Status: Acute Comment: BOTH ELBOWS Cleared for Admission [facility] - Detox or Rehab [facility] Level of Care: Medically Managed Detox Regimen/Protocol: Methadone [facility] Breath Alcohol Content Breath Alcohol Content: 0 Urine Drug Screen - Results Drug Screen Negative: No Urine Drug Screen Results: THC-Marijuana, OPI-Opiates
[2016-09-29] MEDS ORDERED: MENTHOL/PHENOL 1 EACH UD MM PRN (15:50)
[2016-09-29] MEDS ORDERED: guaiFENesin/D-METHORPHAN HB 10 ML UNIT-DOSE CUPS PO PRN (15:50)
[2016-09-29] MEDS ORDERED: MAG HYDROX/AL HYDROX/SIMETH 30 ML UNIT-DOSE CUP PO PRN (15:50)
[2016-09-29] MEDS ORDERED: diphenhydrAMINE HCL 50 MG CAPSULE PO PRN (15:50)
[2016-09-29] MEDS ORDERED: P-EPHED 60MG/TRIPROLIDI 2.5MG TABLET PO PRN (15:50)
[2016-09-29] MEDS ORDERED: ACETAMINOPHEN 325 MG TABLET (FP) PO PRN (15:50)
[2016-09-29] MEDS ORDERED: MAGNESIUM HYDROX 2400MG/30ML ORAL SUSPENSION 30 ML CUP PO PRN (15:50)
[2016-09-29] MEDS ORDERED: LOPERAMIDE HCL 2 MG CAPSULE PO PRN (15:50)
[2016-09-29] MEDS ORDERED: MAGNESIUM CITRATE 300 ML BOTTLE PO PRN (15:50)
[2016-09-29] MEDS ORDERED: IBUPROFEN 400 MG TABLET (FP) PO PRN (15:50)
[2016-09-29] MEDS ORDERED: NICOTINE POLACRILEX 2 MG GUM BUC PRN (15:52)
[2016-09-29] MEDS ORDERED: hydrOXYzine PAMOATE 25 MG CAPSULE (FP) PO PRN (15:53)
[2016-09-29] MEDS ORDERED: METHADONE HCL 10 MG TABLET (FOR DETOX USE ONLY) PO ONE ×2 (17:00→23:00)
[2016-09-29] MEDS: diazePAM 5 MG TABLET PO PRN ×2 (18:04→22:51)
[2016-09-29] MEDS: NICOTINE 14 MG/24 HOURS TOPICAL PATCH TD SCH (18:05)
[2016-09-29 21:26] LABS: URINE APPEARANCE CLEAR; URINE BILIRUBIN NEGATIVE (NEGATIVE); URINE BLOOD NEGATIVE (NEGATIVE); URINE COLOR LTYELLOW; URINE GLUCOSE (UA) NEGATIVE (NEGATIVE); URINE KETONE NEGATIVE (NEGATIVE); URINE LEUK ESTERASE NEGATIVE (NEGATIVE); URINE NITRITE NEGATIVE (NEGATIVE); URINE PROTEIN NEGATIVE (NEGATIVE); URINE UROBILINOGEN NEGATIVE E.U./dl (0.2-1.0)
[2016-09-29] MEDS: BACITRACIN 0.9 GM PACKET TP SCH (22:51)
[2016-09-29] MEDS: THIAMINE HCL 100 MG TABLET (FP) PO SCH (22:51)
[2016-09-30 10:00] LABS: MCH 30.9 pg (25.7-33.7); MCHC 33.5 g/dl (32.0-35.9); MEAN CELL VOLUME 92.2 fl (80-96); MEAN PLT VOLUME 9.5 fl (7.5-11.1); PLATELET COUNT 190 K/MM3 (134-434); RDW 14.1 % (11.9-15.9); WHITE BLOOD COUNT 7.1 K/mm3 (4.0-10.0)
[2016-09-30] MEDS ORDERED: METHADONE HCL 10 MG TABLET (FOR DETOX USE ONLY) PO ONE (10:00)
[2016-09-30] MEDS: NICOTINE 14 MG/24 HOURS TOPICAL PATCH TD SCH (10:14)
[2016-09-30] MEDS: PRENATAL VITAMINS W/ FOLIC ACID TABLET (FP) PO SCH (10:14)
[2016-09-30] MEDS: diazePAM 5 MG TABLET PO PRN ×3 (10:15→22:07)
[2016-09-30 10:22] LABS: ALBUMIN 4.6 g/dl (3.4-5.0); ALK PHOS 79 U/L (45-117); ANION GAP 12 (8-16); BILIRUBIN,TOTAL 0.7 mg/dL (0.2-1.0); CALCIUM 9.4 mg/dL (8.5-10.1); CO2 25 mmol/L (21-32); COCKROFT - GAULT 154.24; CREATININE 0.9 mg/dL (0.7-1.3); GLUCOSE,RANDOM 91 mg/dL (74-106); SGOT/AST 21 U/L (15-37); SGPT/ALT 21 U/L (12-78); TOT PROT 8.1 g/dl (6.4-8.2)
--- NOTE | 2016-09-30 10:38 | PN ---
BHS COWS - Scale Resting Pulse: 0= [place] 80 or Below Sweatin= Chills/Flushing Restless Observation: 1= Difficult to Sit Still Pupil Size: 1= Pupils >than Normal Bone or Joint Aches: 2= Severe Diffuse Aches Runny Nose/ Eye Tearin= Nasal Congestion GI Upset > 30mins: 1= Stomach Cramp Tremor Observation of Outstretched Hands: 1= Tremor [place], Not Seen Yawning Observation: 1= 1-2x During Session Anxiety or Irritability: 1=Feels Anxious/Irritable Goose Flesh Skin: 0=Smooth Skin COWS Score: 10 S Progress Note (SOAP) Subjective: INTERRUPTED SLEEP, SWEATS Objective: 09/30/16 10:37 Vital Signs Temperature 97.5 F L 09/30/16 06:07 Pulse Rate 63 09/30/16 06:07 Respiratory Rate 18 09/30/16 06:07 Blood Pressure 107/70 09/30/16 06:07 O2 Sat by Pulse Oximetry (%) Laboratory Tests 09/29/16 09/30/16 09/30/16 18:01 06:00 06:00 WBC 7.1 D RBC 4.82 Hgb 14.9 Hct 44.4 MCV 92.2 MCHC 33.5 RDW 14.1 Plt Count 190 MPV 9.5 Sodium 137 Potassium 4.3 Chloride 100 Carbon Dioxide 25 Anion Gap 12 BUN 11 D Creatinine 0.9 Creat Clearance w eGFR > 60 Random Glucose 91 Calcium 9.4 Total Bilirubin 0.7 D AST 21 D ALT 21 Alkaline Phosphatase 79 Total Protein 8.1 Albumin 4.6 D Urine Color Ltyellow Urine Appearance Clear Urine pH 6.0 Urine Protein Negative Urine Glucose (UA) Negative Urine Ketones Negative Urine Blood Negative Urine Nitrite Negative Urine Bilirubin Negative Urine Urobilinogen Negative Ur Leukocyte Esterase Negative PT AOX3 IN NAD AMBULATING 09/30/16 10:38 Assessment: 09/30/16 10:37 WITHDRAWAL SX'S Plan: CONT. DETOX INCREASE FLUIDS
[2016-09-30] MEDS: BACITRACIN 0.9 GM PACKET TP SCH ×2 (11:07→22:07)
--- NOTE | 2016-09-30 11:18 | EKG ---
Test Reason : Blood Pressure : / mmHG Vent. Rate : 059 BPM Atrial Rate : 059 BPM P-R Int : 124 ms QRS Dur : 110 ms QT Int : 396 ms P-R-T Axes : 060 078 046 degrees QTc Int : 392 ms SINUS BRADYCARDIA WITH SINUS ARRHYTHMIA OTHERWISE NORMAL ECG WHEN COMPARED WITH ECG OF 13-JUL-2016 13:53, NO SIGNIFICANT CHANGE WAS FOUND Confirmed by HENRIETTA ENAMORADO, LION ([id number]) on 09/30/2016 11:17:53 AM Referred By: Confirmed By:LION SHRESTHA MD
--- NOTE | 2016-09-30 15:18 | CONSULT ---
[facility] Psychiatric Consult - Data Date of interview: 09/30/16 Admission source: [facility] Identifying data: Another admission to [facility] for this 26 y/o male seeking detox treatment,on ,for heroin and marijuana dependence.Patient is single without children,currently undomiciled,unemployed and supported by relatives. Substance Abuse History: - Smoking Cessation. Smoking history: Current every day smoker. Have you smoked in the past 12 months: Yes. Aproximately how many cigarettes per day: 10. Cigars Per Day: 0. Hx Chewing Tobacco Use: No. Initiated information on smoking cessation: Yes. 'Breaking Loose' booklet given : 09/29/16. - Substance & Tx. History. Hx Alcohol Use: No (DENIES). Hx Substance Use: Yes (HEROIN/MARIJUANA). Substance Use Type: Heroin, Marijuana. Hx Substance Use Treatment: Yes ([facility]OX). - Substances Abused. Heroin. Route: Injection. Frequency: Daily. Amount used: 4-10 bags. Age of first use: 22. Date of Last Use: 09/28/16. Marijuana/Hashish. Route: Smoking. Frequency: 1-2 times per week. Amount used: $10. Age of first use: 15. Date of Last Use: 09/29/16. Confirmed by patient. Medical History: Patient endorses good general health. Psychiatric History: Last psychiatric hospitalization was in 2005 at [facility] for " behavioral disturbances ".Diagnosed with ADHD and Bipolar Disorder.Past history of exposure to prescribed psychostimulants (ritalin) and aripriprazole.Mr Gonzalez has stopped going for psychiatric OPD care.No reported history of suicide attempts. Physical/Sexual Abuse/Trauma History: Patient denies. Additional Comment: Urine Drug Screen Results: THC-Marijuana, OPI-Opiates.Noted. Mental Status Exam - Mental Status Exam Alert and Oriented to: Time, Place Cognitive Function: Good Patient Appearance: Well Groomed (athletic fit) Mood: Hopeful, Euthymic Affect: Appropriate, Normal Range Patient Behavior: Appropriate, Cooperative Speech Pattern: Clear, Appropriate Voice Loudness: Normal Thought Process: Goal Oriented Thought Disorder: Not Present Hallucinations: Denies Suicidal Ideation: Denies Homicidal Ideation: Denies Insight/Judgement: Poor Sleep: Poorly Appetite: Good Muscle strength/Tone: Normal Gait/Station: Normal Psychiatric Findings - Problem List ([place] 1, 2,3) (1) Cannabis dependence, uncomplicated Current Visit: Yes Status: Acute (2) Opioid dependence with withdrawal Current Visit: Yes Status: Acute (3) Nicotine dependence Current Visit: Yes Status: Acute Qualifiers: Nicotine product type: cigarettes Substance use status: in withdrawal Qualified Code(s): F17.213 - Nicotine dependence, cigarettes, with withdrawal (4) ADHD (attention deficit hyperactivity disorder) Current Visit: No Status: Chronic Comment: History. (5) Substance induced mood disorder Current Visit: Yes Status: Acute (6) Track ba due to intravenous drug abuse Current Visit: Yes Status: Acute Comment: BOTH ELBOWS (7) Insomnia Current Visit: Yes Status: Acute - Initial Treatment Plan Initial Treatment Plan: Psychoeducation.Detoxification.Trazodone 100 mg po hs at patient's request.Mr Gonzalez reports a past history of adequate response to trazodone for the management of his insomnia.Patient is made aware of the potential for priapism and he is instructed to stop the medication/seek immediate attention if occurrence of painful/prolonged erection.He agrees with this careplan.Observation.
[2016-09-30] MEDS: traZODone HCL 100 MG TABLET (FP) PO SCH (22:07)
[2016-09-30] MEDS: THIAMINE HCL 100 MG TABLET (FP) PO SCH (22:07)
--- NOTE | 2016-10-01 09:27 | PN ---
BHS COWS - Scale Resting Pulse: 0= [place] 80 or Below Sweatin=Flushed/Facial Moisture Restless Observation: 1= Difficult to Sit Still Pupil Size: 0= Normal to Room Light Bone or Joint Aches: 1= Mild Discomfort Runny Nose/ Eye Tearin= Runny Nose/Eyes GI Upset > 30mins: 0= None Tremor Observation of Outstretched Hands: 2= Slight Tremor Visible Yawning Observation: 2= >3x During Session Anxiety or Irritability: 2=Irritable/Anxious Goose Flesh Skin: 0=Smooth Skin COWS Score: 12 BHS Progress Note (SOAP) Subjective: shakes sweats agitation interrupted sleep Objective: 10/01/16 09:26 Vital Signs Temperature 97.7 F 10/01/16 06:00 Pulse Rate 53 L 10/01/16 06:00 Respiratory Rate 16 10/01/16 06:00 Blood Pressure 118/54 10/01/16 06:00 O2 Sat by Pulse Oximetry (%) Laboratory Tests 09/29/16 09/30/16 09/30/16 18:01 06:00 06:00 WBC 7.1 D RBC 4.82 Hgb 14.9 Hct 44.4 MCV 92.2 MCHC 33.5 RDW 14.1 Plt Count 190 MPV 9.5 Sodium 137 Potassium 4.3 Chloride 100 Carbon Dioxide 25 Anion Gap 12 BUN 11 D Creatinine 0.9 Creat Clearance w eGFR > 60 Random Glucose 91 Calcium 9.4 Total Bilirubin 0.7 D AST 21 D ALT 21 Alkaline Phosphatase 79 Total Protein 8.1 Albumin 4.6 D Urine Color Ltyellow Urine Appearance Clear Urine pH 6.0 Ur Specific [place] 1.015 Urine Protein Negative Urine Glucose (UA) Negative Urine Ketones Negative Urine Blood Negative Urine Nitrite Negative Urine Bilirubin Negative Urine Urobilinogen Negative Ur Leukocyte Esterase Negative RPR Titer 09/30/16 06:00 WBC RBC Hgb Hct MCV MCHC RDW Plt Count MPV Sodium Potassium Chloride Carbon Dioxide Anion Gap BUN Creatinine Creat Clearance w eGFR Random Glucose Calcium Total Bilirubin AST ALT Alkaline Phosphatase Total Protein Albumin Urine Color Urine Appearance Urine pH Ur Specific [place] Urine Protein Urine Glucose (UA) Urine Ketones Urine Blood Urine Nitrite Urine Bilirubin Urine Urobilinogen Ur Leukocyte Esterase RPR Titer Nonreactive awake/alert ambulating no acute distress Assessment: 10/01/16 09:27 withdrawal sx Plan: continue detox increase fluids
[2016-10-01] MEDS ORDERED: METHADONE HCL 5 MG TABLET (FOR DETOX USE ONLY) PO ONE (10:00)
[2016-10-01] MEDS: BACITRACIN 0.9 GM PACKET TP SCH ×2 (10:10→23:02)
[2016-10-01] MEDS: PRENATAL VITAMINS W/ FOLIC ACID TABLET (FP) PO SCH (10:10)
[2016-10-01] MEDS: diazePAM 5 MG TABLET PO PRN ×3 (10:11→23:02)
[2016-10-01] MEDS: NICOTINE 14 MG/24 HOURS TOPICAL PATCH TD SCH (10:12)
[2016-10-01] MEDS: THIAMINE HCL 100 MG TABLET (FP) PO SCH (23:02)
[2016-10-01] MEDS: traZODone HCL 100 MG TABLET (FP) PO SCH (23:02)
--- NOTE | 2016-10-02 09:46 | PN ---
BHS Progress Note (SOAP) Subjective: little sweats i would like to be d/c tomorrow i am feeling alot better. Objective: 10/02/16 09:57 Vital Signs Temperature 97.7 F 10/02/16 07:10 Pulse Rate 43 L 10/02/16 07:10 Respiratory Rate 16 10/02/16 07:10 Blood Pressure 117/56 10/02/16 07:10 O2 Sat by Pulse Oximetry (%) Laboratory Tests 09/29/16 09/30/16 09/30/16 18:01 06:00 06:00 WBC 7.1 D RBC 4.82 Hgb 14.9 Hct 44.4 MCV 92.2 MCHC 33.5 RDW 14.1 Plt Count 190 MPV 9.5 Sodium 137 Potassium 4.3 Chloride 100 Carbon Dioxide 25 Anion Gap 12 BUN 11 D Creatinine 0.9 Creat Clearance w eGFR > 60 Random Glucose 91 Calcium 9.4 Total Bilirubin 0.7 D AST 21 D ALT 21 Alkaline Phosphatase 79 Total Protein 8.1 Albumin 4.6 D Urine Color Ltyellow Urine Appearance Clear Urine pH 6.0 Ur Specific [place] 1.015 Urine Protein Negative Urine Glucose (UA) Negative Urine Ketones Negative Urine Blood Negative Urine Nitrite Negative Urine Bilirubin Negative Urine Urobilinogen Negative Ur Leukocyte Esterase Negative RPR Titer 09/30/16 06:00 WBC RBC Hgb Hct MCV MCHC RDW Plt Count MPV Sodium Potassium Chloride Carbon Dioxide Anion Gap BUN Creatinine Creat Clearance w eGFR Random Glucose Calcium Total Bilirubin AST ALT Alkaline Phosphatase Total Protein Albumin Urine Color Urine Appearance Urine pH Ur Specific [place] Urine Protein Urine Glucose (UA) Urine Ketones Urine Blood Urine Nitrite Urine Bilirubin Urine Urobilinogen Ur Leukocyte Esterase RPR Titer Nonreactive awake/alert ambulating no acute distress Assessment: 10/02/16 10:05 withdrawal sx Plan: continue detox as ordered d/c in am
[2016-10-02] MEDS ORDERED: METHADONE HCL 5 MG TABLET (FOR DETOX USE ONLY) PO ONE (10:00)
[2016-10-02] MEDS ORDERED: METHADONE HCL 10 MG TABLET (FOR DETOX USE ONLY) PO ONE (10:00)
[2016-10-02] MEDS: PRENATAL VITAMINS W/ FOLIC ACID TABLET (FP) PO SCH (10:21)
[2016-10-02] MEDS: BACITRACIN 0.9 GM PACKET TP SCH ×2 (10:21→22:13)
[2016-10-02] MEDS: NICOTINE 14 MG/24 HOURS TOPICAL PATCH TD SCH (10:23)
[2016-10-02] MEDS: THIAMINE HCL 100 MG TABLET (FP) PO SCH (22:13)
[2016-10-02] MEDS: traZODone HCL 100 MG TABLET (FP) PO SCH (22:13)
[2016-10-03] MEDS ORDERED: METHADONE HCL 5 MG TABLET (FOR DETOX USE ONLY) PO ONE (06:00)
[2016-10-03 07:13] VITALS: BP 126/61; PULSE 98; TEMP 97.5
--- NOTE | 2016-10-03 08:27 | DS ---
[facility] Detox Discharge Summary Admission Date: 09/29/16 Discharge Date: 10/03/16 - History Present History: Cannabis Dependence, Opioid Dependence - Physical Exam Results Vital Signs: Vital Signs Temperature 97.5 F L 10/03/16 06:00 Pulse Rate 98 H 10/03/16 06:00 Respiratory Rate 18 10/03/16 06:00 Blood Pressure 126/61 10/03/16 06:00 O2 Sat by Pulse Oximetry (%) - Treatment Hospital Course: Detox Protocol Followed, Detoxed Safely, Responded well, Discharged Condition Good, Rehab Referral Accepted - Medication Discharge Medications: Ambulatory Orders Trazodone HCl 100 mg PO HS #30 tablet 09/30/16 - Diagnosis (1) Cannabis dependence, uncomplicated Current Visit: Yes Status: Chronic (2) Insomnia Current Visit: Yes Status: Acute (3) Nicotine dependence Current Visit: Yes Status: Chronic Qualifiers: Nicotine product type: cigarettes Substance use status: uncomplicated Qualified Code(s): F17.210 - Nicotine dependence, cigarettes, uncomplicated (4) Opioid dependence with withdrawal Current Visit: Yes Status: Chronic (5) Substance induced mood disorder Current Visit: Yes Status: Chronic (6) Track ba due to intravenous drug abuse Current Visit: Yes Status: Chronic (7) Abscess of left arm Current Visit: No Status: Acute (8) ADHD (attention deficit hyperactivity disorder) Current Visit: No Status: Chronic (9) Drug induced sleep disorder Current Visit: No Status: Chronic (10) Substance-induced sleep disorder Current Visit: No Status: Chronic - AMA Did Patient Leave Against Medical Advice: No
[2016-10-03] MEDS ORDERED: METHADONE HCL 10 MG TABLET (FOR DETOX USE ONLY) PO ONE (10:00)
[2016-10-04] MEDS ORDERED: METHADONE HCL 5 MG TABLET (FOR DETOX USE ONLY) PO ONE (06:00)
== END 2016-10-03 10:02 | disposition home or self-care (01) | DRG 773 ==
LOC: YASAS 12:09 → Y6N 16:24
PROVIDERS: ADMIT Internal Medicine Addiction Medicine; ATTEND Internal Medicine Addiction Medicine
PROC: HZ2ZZZZ Detoxification Services for Substance Abuse Treatment (ICD-10-PCS; principal; 2016-10-03)
DX: F11.23 Opioid dependence with withdrawal (principal); F12.20 Cannabis dependence, uncomplicated; F17.210 Nicotine dependence, cigarettes, uncomplicated; F19.24 Other psychoactive substance dependence with psychoactive substance-induced mood disorder; F19.282 Other psychoactive substance dependence with psychoactive substance-induced sleep disorder; F90.9 Attention-deficit hyperactivity disorder, unspecified type; G47.00 Insomnia, unspecified; S40.812A Abrasion of left upper arm, initial encounter; X58.XXXA Exposure to other specified factors, initial encounter; Y93.9 Activity, unspecified; Z59.0 Homelessness
CPT/HCPCS: 36415; 80053; 81003; 85027; 86593; 93005; 93010

== ENCOUNTER 2016-10-28 10:10 | Inpatient (IN) | payer OTHER ==
[2016-10-28 12:26] VITALS: BMI 26.4
--- NOTE | 2016-10-28 13:26 | HP ---
COWS - Scale Resting Pulse: 0= [place] 80 or Below Sweatin=Flushed/Facial Moisture Restless Observation: 3= Extraneous Movement Pupil Size: 2= Moderately Dilated Bone or Joint Aches: 2= Severe Diffuse Aches Runny Nose/ Eye Tearin= Runny Nose/Eyes GI Upset > 30mins: 3= Vomiting/Diarrhea Tremor Observation: 2= Slight Tremor Visible Yawning Observation: 2= >3x During Session Anxiety or Irritability: 2=Irritable/Anxious Goose Flesh Skin: 0=Smooth Skin COWS Score: 20 Admission ROS BHS - HPI Chief Complaint: I NEED HELP TO STOP USING HEROIN Allergies/Adverse Reactions: Allergies Allergy/AdvReac Type Severity Reaction Status Date / Time Penicillins Allergy Severe Hives Verified 10/28/16 13:22 History of Present Illness: THIS 26 YEARS OLD MALE WITH HEROIN AND CANNABIS DEPENDENCE,SEEKING HELP TO STOP USING HEROIN,LAST DETOX 09/29/16 NICOTINE DEPENDENCE LONGEST PERIOD OF SOBRIETY 5 MONTHS Exam Limitations: No Limitations - Ebola screening Have you traveled outside of the country in the last 21 days: No Have you had contact with anyone from an Ebola affected area: No Have you been sick,other than usual withdrawal symptoms: No - Review of Systems Constitutional: Chills, Diaphoresis, Loss of Appetite, Malaise, Night Sweats, Changes in sleep, Weakness, Unintentional Wgt. Loss EENT: reports: Tearing, Nose Congestion Respiratory: reports: No Symptoms reported Cardiac: reports: Palpitations GI: reports: Diarrhea, Nausea, Vomiting, Abdominal cramping : reports: No Symptoms Reported Musculoskeletal: reports: Back Pain, Muscle Pain Integumentary: reports: Dryness Neuro: reports: Headache, Tremors Endocrine: reports: No Symptoms Reported Hematology: reports: No Symptoms Reported Psychiatric: reports: Judgement Intact, Mood/Affect Appropiate, Orientated x3, Anxious, Depressed Patient History - Patient Medical History Hx Anemia: No Hx Asthma: No Hx Chronic Obstructive Pulmonary Disease (COPD): No Hx Cancer: No Hx Cardiac Disorders: No Hx Congestive Heart Failure: No Hx Hypertension: No Hx Hypercholesterolemia: No Hx Pacemaker: No HX Cerebrovascular Accident: No Hx Seizures: No Hx Dementia: No Hx Diabetes: No Hx Gastrointestinal Disorders: No Hx Liver Disease: No Hx Genitourinary Disorders: No Hx Sexually Transmitted Disorders: No Hx Renal Disease (ESRD): No Hx Thyroid Disease: No Hx Human Immunodeficiency Virus (HIV): No (NEGATIVE HX;06/2016) Hx Hepatitis C: No (NEGATIVE HX;06/2016) Hx Depression: Yes (ADHD) Hx Suicide Attempt: No (DENIES) Hx Bipolar Disorder: No Hx Schizophrenia: No Other Medical History: ANXIETY,NO SUICIDAL,NO HOMICIDAL - Patient Surgical History Past Surgical History: No Hx Neurologic Surgery: No Hx Cataract Extraction: No Hx Cardiac Surgery: No Hx Lung Surgery: No Hx Breast Surgery: No Hx Breast Biopsy: No Hx Abdominal Surgery: No Hx Appendectomy: No Hx Cholecystectomy: No Hx Genitourinary Surgery: No Hx Section: No Hx Orthopedic Surgery: No Anesthesia Reaction: No - PPD History Previous Implant?: Yes Date: 07/15/16 Results: 0 mm PPD to be Administered?: No - Smoking Cessation Smoking history: Current every day smoker Have you smoked in the past 12 months: Yes Aproximately how many cigarettes per day: 10 Cigars Per Day: 0 Hx Chewing Tobacco Use: No Initiated information on smoking cessation: Yes 'Breaking Loose' booklet given: 10/28/16 - Substance & Tx. History Hx Alcohol Use: No Hx Substance Use: Yes Substance Use Type: Heroin Hx Substance Use Treatment: Yes (LAST [facility] 09/29/16 TO 10/03/16) - Substances Abused Heroin Route: Injection Frequency: Daily Amount used: 3-5 BAGS Age of first use: 22 Date of Last Use: 10/27/16 Marijuana/Hashish Route: Smoking Frequency: 1-3 times last 30 days Amount used: 1/2 GRAM Age of first use: 15 Date of Last Use: 10/26/16 Family Disease History - Family Disease History Family Disease History: Other: Mother (HTN;ADDICTION) Admission Physical Exam S - Vital Signs Vital Signs: Vital Signs - 24 hr 10/28/16 12:22 Temperature 96.4 F L Pulse Rate 56 L Respiratory 20 Rate Blood Pressure 119/76 - Physical General Appearance: Yes: Moderate Distress, Tremorous, Irritable, Sweating, Anxious HEENTM: Yes: Hearing grossly Normal, Normal ENT Inspection, COREY, Pharynx Normal Respiratory: Yes: Lungs Clear, Normal Breath Sounds, No Respiratory Distress Neck: Yes: Within Normal Limits, No masses,lesions,Nodules, Supple Breast: Yes: Within Normal Limits Cardiology: Yes: Within Normal Limits, Regular Rhythm, Regular Rate, S1, S2 Abdominal: Yes: Within Normal Limits, Normal Bowel Sounds, Non Tender, Flat, Soft Genitourinary: Yes: Within Normal Limits Back: Yes: Normal Inspection, Muscle Spasm Musculoskeletal: Yes: full range of Motion, Back pain, Muscle Pain Extremities: Yes: Normal Range of Motion, Tremors Neurological: Yes: medical oncologist II-XII NML intact, Fully Oriented, Alert, Motor Strength 5/5 Integumentary: Yes: Dry, Track Ba Lymphatic: Yes: Within Normal Limits - Diagnostic (1) ADHD (attention deficit hyperactivity disorder) Current Visit: No Status: Chronic Comment: History. 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 - Detox or Rehab [facility] Level of Care: Medically Managed Detox Regimen/Protocol: Methadone [facility] Breath Alcohol Content Breath Alcohol Content: 0 Urine Drug Screen - Results Drug Screen Negative: No Urine Drug Screen Results: THC-Marijuana, ANIYAH-Cocaine, OPI-Opiates, BZO- Benzodiazepines
[2016-10-28] MEDS ORDERED: MENTHOL/PHENOL 1 EACH UD MM PRN (13:35)
[2016-10-28] MEDS ORDERED: LOPERAMIDE HCL 2 MG CAPSULE PO PRN (13:35)
[2016-10-28] MEDS ORDERED: ACETAMINOPHEN 325 MG TABLET (FP) PO PRN (13:35)
[2016-10-28] MEDS ORDERED: P-EPHED 60MG/TRIPROLIDI 2.5MG TABLET PO PRN (13:35)
[2016-10-28] MEDS ORDERED: diphenhydrAMINE HCL 50 MG CAPSULE PO PRN (13:35)
[2016-10-28] MEDS ORDERED: IBUPROFEN 400 MG TABLET (FP) PO PRN (13:35)
[2016-10-28] MEDS ORDERED: guaiFENesin/D-METHORPHAN HB 10 ML UNIT-DOSE CUPS PO PRN (13:35)
[2016-10-28] MEDS ORDERED: MAG HYDROX/AL HYDROX/SIMETH 30 ML UNIT-DOSE CUP PO PRN (13:35)
[2016-10-28] MEDS ORDERED: MAGNESIUM CITRATE 300 ML BOTTLE PO PRN (13:35)
[2016-10-28] MEDS ORDERED: hydrOXYzine PAMOATE 50 MG CAPSULE (FP) PO PRN (13:35)
[2016-10-28] MEDS ORDERED: MAGNESIUM HYDROX 2400MG/30ML ORAL SUSPENSION 30 ML CUP PO PRN (13:35)
[2016-10-28] MEDS ORDERED: CYCLOBENZAPRINE HCL 10 MG TABLET (FP) PO PRN (13:39)
[2016-10-28] MEDS ORDERED: METHADONE HCL 10 MG TABLET (FOR DETOX USE ONLY) PO ONE ×2 (14:33→23:00)
[2016-10-28] MEDS: diazePAM 5 MG TABLET PO PRN ×2 (15:45→22:55)
[2016-10-28 16:25] LABS: URINE APPEARANCE CLEAR; URINE BILIRUBIN NEGATIVE (NEGATIVE); URINE BLOOD NEGATIVE (NEGATIVE); URINE COLOR YELLOW; URINE GLUCOSE (UA) NEGATIVE (NEGATIVE); URINE KETONE NEGATIVE (NEGATIVE); URINE LEUK ESTERASE NEGATIVE (NEGATIVE); URINE NITRITE NEGATIVE (NEGATIVE); URINE PROTEIN NEGATIVE (NEGATIVE); URINE UROBILINOGEN NEGATIVE E.U./dl (0.2-1.0)
[2016-10-28] MEDS: THIAMINE HCL 100 MG TABLET (FP) PO SCH (22:53)
[2016-10-28] MEDS: cloNIDine HCL 0.1 MG TABLET PO SCH (22:53)
[2016-10-29] MEDS: diazePAM 5 MG TABLET PO PRN ×2 (09:31→17:11)
[2016-10-29] MEDS: PRENATAL VITAMINS W/ FOLIC ACID TABLET (FP) PO SCH (09:31)
[2016-10-29] MEDS: cloNIDine HCL 0.1 MG TABLET PO SCH ×2 (09:31→23:33)
[2016-10-29] MEDS ORDERED: METHADONE HCL 10 MG TABLET (FOR DETOX USE ONLY) PO ONE (10:00)
[2016-10-29 10:08] LABS: MCHC 33.5 g/dl (32.0-35.9); MEAN CELL VOLUME 92.6 fl (80-96); MEAN PLT VOLUME 8.7 fl (7.5-11.1); PLATELET COUNT 195 K/MM3 (134-434); RDW 13.3 % (11.9-15.9); WHITE BLOOD COUNT 5.3 K/mm3 (4.0-10.0)
[2016-10-29 10:09] LABS: ALBUMIN 3.5 g/dl (3.4-5.0); ALK PHOS 64 U/L (45-117); ANION GAP 7 (8-16); BILIRUBIN,TOTAL 0.3 mg/dL (0.2-1.0); CALCIUM 9.2 mg/dL (8.5-10.1); CO2 30 mmol/L (21-32); COCKROFT - GAULT 169.07; CREATININE 0.8 mg/dL (0.7-1.3); GLUCOSE,RANDOM 92 mg/dL (74-106); SGOT/AST 17 U/L (15-37); SGPT/ALT 24 U/L (12-78); TOT PROT 6.7 g/dl (6.4-8.2)
--- NOTE | 2016-10-29 11:35 | PN ---
BHS COWS - Scale Resting Pulse: 0= [place] 80 or Below Sweatin= Chills/Flushing Restless Observation: 3= Extraneous Movement Pupil Size: 2= Moderately Dilated Bone or Joint Aches: 4=Acute Joint/Muscle Pain Runny Nose/ Eye Tearin= Nasal Congestion GI Upset > 30mins: 1= Stomach Cramp Tremor Observation of Outstretched Hands: 2= Slight Tremor Visible Yawning Observation: 1= 1-2x During Session Anxiety or Irritability: 2=Irritable/Anxious Goose Flesh Skin: 0=Smooth Skin COWS Score: 17 BHS Progress Note (SOAP) Subjective: ANXIETY,IRRITABILITY,SWEATS, INTERMITTENT SLEEP. Objective: 10/29/16 11:34 Vital Signs Temperature 96.1 F L 10/29/16 10:32 Pulse Rate 50 L 10/29/16 10:32 Respiratory Rate 20 10/29/16 10:32 Blood Pressure 123/77 10/29/16 10:32 O2 Sat by Pulse Oximetry (%) Laboratory Last Values WBC 5.3 K/mm3 (4.0-10.0) 10/29/16 07:00 RBC 4.46 M/mm3 (4.00-5.60) 10/29/16 07:00 Hgb 13.8 GM/dL (11.7-16.9) 10/29/16 07:00 Hct 41.3 % (35.4-49) 10/29/16 07:00 MCV 92.6 fl (80-96) 10/29/16 07:00 MCHC 33.5 g/dl (32.0-35.9) 10/29/16 07:00 RDW 13.3 % (11.9-15.9) 10/29/16 07:00 Plt Count 195 K/MM3 (134-434) 10/29/16 07:00 MPV 8.7 fl (7.5-11.1) 10/29/16 07:00 Sodium 142 mmol/L (136-145) 10/29/16 07:00 Potassium 4.9 mmol/L (3.5-5.1) 10/29/16 07:00 Chloride 105 mmol/L (98-107) 10/29/16 07:00 Carbon Dioxide 30 mmol/L (21-32) 10/29/16 07:00 Anion Gap 7 (8-16) L 10/29/16 07:00 BUN 12 mg/dL (7-18) 10/29/16 07:00 Creatinine 0.8 mg/dL (0.7-1.3) 10/29/16 07:00 Creat Clearance w eGFR > 60 (>60) 10/29/16 07:00 Random Glucose 92 mg/dL (74-106) 10/29/16 07:00 Calcium 9.2 mg/dL (8.5-10.1) 10/29/16 07:00 Total Bilirubin 0.3 mg/dL (0.2-1.0) D 10/29/16 07:00 AST 17 U/L (15-37) 10/29/16 07:00 ALT 24 U/L (12-78) 10/29/16 07:00 Alkaline Phosphatase 64 U/L (45-117) 10/29/16 07:00 Total Protein 6.7 g/dl (6.4-8.2) 10/29/16 07:00 Albumin 3.5 g/dl (3.4-5.0) D 10/29/16 07:00 Urine Color Yellow 10/28/16 15:00 Urine Appearance Clear 10/28/16 15:00 Urine pH 5.0 (5.0-8.0) 10/28/16 15:00 Ur Specific [place] 1.025 (1.005-1.025) 10/28/16 15:00 Urine Protein Negative (NEGATIVE) 10/28/16 15:00 Urine Glucose (UA) Negative (NEGATIVE) 10/28/16 15:00 Urine Ketones Negative (NEGATIVE) 10/28/16 15:00 Urine Blood Negative (NEGATIVE) 10/28/16 15:00 Urine Nitrite Negative (NEGATIVE) 10/28/16 15:00 Urine Bilirubin Negative (NEGATIVE) 10/28/16 15:00 Urine Urobilinogen Negative E.U./dl (0.2-1.0) 10/28/16 15:00 Ur Leukocyte Esterase Negative (NEGATIVE) 10/28/16 15:00 Assessment: 10/29/16 11:35 WITHDRAWAL SX Plan: CONTINUE DETOX VALIUM PRN/STD DOSES DIRECTED
--- NOTE | 2016-10-29 11:40 | EKG ---
Test Reason : Blood Pressure : / mmHG Vent. Rate : 047 BPM Atrial Rate : 047 BPM P-R Int : 112 ms QRS Dur : 116 ms QT Int : 422 ms P-R-T Axes : 061 080 052 degrees QTc Int : [address] ELEVATION, CONSIDER EARLY REPOLARIZATION BORDERLINE ECG WHEN COMPARED WITH ECG OF 29-SEP-2016 17:07, NO SIGNIFICANT CHANGE WAS FOUND Confirmed by SAMANTA LEE MD ([id number]) on 10/29/2016 11:40:10 AM Referred By: Confirmed By:SAMANTA LEE MD
--- NOTE | 2016-10-29 14:08 | CONSULT ---
[facility] Psychiatric Consult - Data Date of interview: 10/29/16 Admission source: [facility] Identifying data: Readmission to [facility] for this 26 y/o male seeking detox treatment,on ,for heroin and marijuana dependence (Utox is found positive for cocaine as well).Patient is single without children,homeless, unemployed and supported by relatives. Substance Abuse History: - Smoking Cessation. Smoking history: Current every day smoker. Have you smoked in the past 12 months: Yes. Aproximately how many cigarettes per day: 10. Cigars Per Day: 0. Hx Chewing Tobacco Use: No. Initiated information on smoking cessation: Yes. 'Breaking Loose' booklet given : 10/28/16. - Substance & Tx. History. Hx Alcohol Use: No. Hx Substance Use: Yes. Substance Use Type: Heroin. Hx Substance Use Treatment: Yes (LAST [facility] TO 10/03/16). - Substances Abused. Heroin. Route: Injection. Frequency: Daily. Amount used: 3-5 BAGS. Age of first use: 22. Date of Last Use: 10/27/16. Marijuana/Hashish. Route: Smoking. Frequency: 1-3 times last 30 days. Amount used: 1/2 GRAM. Age of first use: 15. Date of Last Use: 10/26/16 Medical History: Patient endorses good general health. Psychiatric History: Patient denies history of mental illness.He is a hostile and totally indifferent historian.Unreliable as evidenced by previous records ( from this scenario writer in 09/30/16) : last psychiatric hospitalization was in 2005 at [facility] for " behavioral disturbances ".Diagnosed with ADHD and Bipolar Disorder.Past history of exposure to prescribed psychostimulants (ritalin) and aripriprazole.Mr Gonzalez has stopped going for psychiatric OPD care.No reported history of suicide attempts. Physical/Sexual Abuse/Trauma History: Patient denies history of abuse. Additional Comment: Urine Drug Screen Results: THC-Marijuana, ANIYAH-Cocaine, OPI- Opiates, BZO-Benzodiazepines.Noted. Mental Status Exam - Mental Status Exam Alert and Oriented to: Time, Place, Person Cognitive Function: Good Patient Appearance: Well Groomed Mood: Hostile, Withdrawn, Irritable Affect: Mood Congruent Patient Behavior: Fatigued, Uncooperative Speech Pattern: Clear Voice Loudness: Normal Thought Process: Goal Oriented Thought Disorder: Not Present Hallucinations: Denies Suicidal Ideation: Denies Homicidal Ideation: Denies Insight/Judgement: Poor Sleep: Well Appetite: Good Muscle strength/Tone: Normal Gait/Station: Normal Psychiatric Findings - Problem List ([place] 1, 2,3) (1) Opioid dependence with withdrawal Current Visit: Yes Status: Acute (2) Cannabis dependence, uncomplicated Current Visit: Yes Status: Acute (3) Cocaine dependence Current Visit: Yes Status: Acute (4) Nicotine dependence Current Visit: Yes Status: Acute Qualifiers: Nicotine product type: cigarettes Substance use status: uncomplicated Qualified Code(s): F17.210 - Nicotine dependence, cigarettes, uncomplicated (5) Substance induced mood disorder Current Visit: Yes Status: Acute (6) ADHD (attention deficit hyperactivity disorder) Current Visit: No Status: Chronic Comment: History. - Initial Treatment Plan Initial Treatment Plan: Psychoeducation.Detoxification.Observation.
[2016-10-29] MEDS: THIAMINE HCL 100 MG TABLET (FP) PO SCH (23:33)
[2016-10-30] MEDS ORDERED: METHADONE HCL 5 MG TABLET (FOR DETOX USE ONLY) PO ONE (10:00)
[2016-10-30] MEDS: cloNIDine HCL 0.1 MG TABLET PO SCH ×2 (10:28→22:49)
[2016-10-30] MEDS: PRENATAL VITAMINS W/ FOLIC ACID TABLET (FP) PO SCH (10:28)
[2016-10-30] MEDS: diazePAM 5 MG TABLET PO PRN ×2 (10:29→21:18)
--- NOTE | 2016-10-30 11:53 | PN ---
BHS COWS - Scale Resting Pulse: 0= [place] 80 or Below Sweatin= Chills/Flushing Restless Observation: 3= Extraneous Movement Pupil Size: 2= Moderately Dilated Bone or Joint Aches: 2= Severe Diffuse Aches Runny Nose/ Eye Tearin= Nasal Congestion GI Upset > 30mins: 1= Stomach Cramp Tremor Observation of Outstretched Hands: 2= Slight Tremor Visible Yawning Observation: 1= 1-2x During Session Anxiety or Irritability: 2=Irritable/Anxious Goose Flesh Skin: 0=Smooth Skin COWS Score: 15 BHS Progress Note (SOAP) Subjective: ANXIETY,SWEATS/CHILLS,INTERMITTENT SLEEP. Objective: 10/30/16 11:53 Vital Signs Temperature 96.9 F L 10/30/16 10:25 Pulse Rate 51 L 10/30/16 10:25 Respiratory Rate 18 10/30/16 10:25 Blood Pressure 121/68 10/30/16 10:25 O2 Sat by Pulse Oximetry (%) Laboratory Last Values WBC 5.3 K/mm3 (4.0-10.0) 10/29/16 07:00 RBC 4.46 M/mm3 (4.00-5.60) 10/29/16 07:00 Hgb 13.8 GM/dL (11.7-16.9) 10/29/16 07:00 Hct 41.3 % (35.4-49) 10/29/16 07:00 MCV 92.6 fl (80-96) 10/29/16 07:00 MCHC 33.5 g/dl (32.0-35.9) 10/29/16 07:00 RDW 13.3 % (11.9-15.9) 10/29/16 07:00 Plt Count 195 K/MM3 (134-434) 10/29/16 07:00 MPV 8.7 fl (7.5-11.1) 10/29/16 07:00 Sodium 142 mmol/L (136-145) 10/29/16 07:00 Potassium 4.9 mmol/L (3.5-5.1) 10/29/16 07:00 Chloride 105 mmol/L (98-107) 10/29/16 07:00 Carbon Dioxide 30 mmol/L (21-32) 10/29/16 07:00 Anion Gap 7 (8-16) L 10/29/16 07:00 BUN 12 mg/dL (7-18) 10/29/16 07:00 Creatinine 0.8 mg/dL (0.7-1.3) 10/29/16 07:00 Creat Clearance w eGFR > 60 (>60) 10/29/16 07:00 Random Glucose 92 mg/dL (74-106) 10/29/16 07:00 Calcium 9.2 mg/dL (8.5-10.1) 10/29/16 07:00 Total Bilirubin 0.3 mg/dL (0.2-1.0) D 10/29/16 07:00 AST 17 U/L (15-37) 10/29/16 07:00 ALT 24 U/L (12-78) 10/29/16 07:00 Alkaline Phosphatase 64 U/L (45-117) 10/29/16 07:00 Total Protein 6.7 g/dl (6.4-8.2) 10/29/16 07:00 Albumin 3.5 g/dl (3.4-5.0) D 10/29/16 07:00 Urine Color Yellow 10/28/16 15:00 Urine Appearance Clear 10/28/16 15:00 Urine pH 5.0 (5.0-8.0) 10/28/16 15:00 Ur Specific [place] 1.025 (1.005-1.025) 10/28/16 15:00 Urine Protein Negative (NEGATIVE) 10/28/16 15:00 Urine Glucose (UA) Negative (NEGATIVE) 10/28/16 15:00 Urine Ketones Negative (NEGATIVE) 10/28/16 15:00 Urine Blood Negative (NEGATIVE) 10/28/16 15:00 Urine Nitrite Negative (NEGATIVE) 10/28/16 15:00 Urine Bilirubin Negative (NEGATIVE) 10/28/16 15:00 Urine Urobilinogen Negative E.U./dl (0.2-1.0) 10/28/16 15:00 Ur Leukocyte Esterase Negative (NEGATIVE) 10/28/16 15:00 RPR Titer Nonreactive (NONREACTIVE) 10/29/16 07:00 Assessment: 10/30/16 11:53 WITHDRAWAL SX Plan: CONTINUE DETOX
[2016-10-30] MEDS: THIAMINE HCL 100 MG TABLET (FP) PO SCH (22:49)
[2016-10-31] MEDS: PRENATAL VITAMINS W/ FOLIC ACID TABLET (FP) PO SCH (09:46)
[2016-10-31] MEDS: cloNIDine HCL 0.1 MG TABLET PO SCH (09:46)
[2016-10-31] MEDS: diazePAM 5 MG TABLET PO PRN (09:46)
[2016-10-31] MEDS ORDERED: METHADONE HCL 5 MG TABLET (FOR DETOX USE ONLY) PO ONE (10:00)
--- NOTE | 2016-10-31 10:31 | PN ---
BHS Progress Note (SOAP) Subjective: Sweating,interrupted sleep,restless Objective: 10/31/16 10:30 Vital Signs - 8 hr 10/31/16 10/31/16 03:30 06:34 Temperature 97.0 F L Pulse Rate 53 L Respiratory 18 18 Rate Blood Pressure 126/76 Laboratory Tests 10/28/16 10/29/16 10/29/16 15:00 07:00 07:00 WBC 5.3 RBC 4.46 Hgb 13.8 Hct 41.3 MCV 92.6 MCHC 33.5 RDW 13.3 Plt Count 195 MPV 8.7 Sodium 142 Potassium 4.9 Chloride 105 Carbon Dioxide 30 Anion Gap 7 L BUN 12 Creatinine 0.8 Creat Clearance w eGFR > 60 Random Glucose 92 Calcium 9.2 Total Bilirubin 0.3 D AST 17 ALT 24 Alkaline Phosphatase 64 Total Protein 6.7 Albumin 3.5 D Urine Color Yellow Urine Appearance Clear Urine pH 5.0 Ur Specific [place] 1.025 Urine Protein Negative Urine Glucose (UA) Negative Urine Ketones Negative Urine Blood Negative Urine Nitrite Negative Urine Bilirubin Negative Urine Urobilinogen Negative Ur Leukocyte Esterase Negative RPR Titer 10/29/16 07:00 WBC RBC Hgb Hct MCV MCHC RDW Plt Count MPV Sodium Potassium Chloride Carbon Dioxide Anion Gap BUN Creatinine Creat Clearance w eGFR Random Glucose Calcium Total Bilirubin AST ALT Alkaline Phosphatase Total Protein Albumin Urine Color Urine Appearance Urine pH Ur Specific [place] Urine Protein Urine Glucose (UA) Urine Ketones Urine Blood Urine Nitrite Urine Bilirubin Urine Urobilinogen Ur Leukocyte Esterase RPR Titer Nonreactive labs noted Assessment: 10/31/16 10:31 Withdrawal sx. Plan: Continue detox
[2016-10-31 10:46] VITALS: BP 127/75; PULSE 62; TEMP 97.1
[2016-11-01] MEDS ORDERED: METHADONE HCL 10 MG TABLET (FOR DETOX USE ONLY) PO ONE (10:00)
[2016-11-02] MEDS ORDERED: METHADONE HCL 5 MG TABLET (FOR DETOX USE ONLY) PO ONE (06:00)
== END 2016-10-31 11:24 | disposition left against medical advice (07) | DRG 770 ==
LOC: YASAS 10:10 → Y3N 14:28
PROVIDERS: ADMIT Internal Medicine; ATTEND Internal Medicine
PROC: HZ2ZZZZ Detoxification Services for Substance Abuse Treatment (ICD-10-PCS; principal; 2016-10-28)
DX: F11.23 Opioid dependence with withdrawal (principal); F14.20 Cocaine dependence, uncomplicated; F12.20 Cannabis dependence, uncomplicated; F17.210 Nicotine dependence, cigarettes, uncomplicated; F19.24 Other psychoactive substance dependence with psychoactive substance-induced mood disorder; F90.9 Attention-deficit hyperactivity disorder, unspecified type; F41.8 Other specified anxiety disorders; L90.5 Scar conditions and fibrosis of skin; Z59.0 Homelessness
CPT/HCPCS: 36415; 80053; 81003; 85027; 86593; 93005; 93010; J0735

== ENCOUNTER 2020-02-23 10:15 | Inpatient (IN) | payer OTHER ==
--- NOTE | 2020-02-23 10:18 | BHS.RME ---
Substance Use & Tx History - Substance Use History Heroin Substance amount: 2 grams Frequency of use: Daily Substance route: Injection (ex: intravenous or skin popping) Date of Last Use: 02/22/20 (started age 22) Nicotine Substance amount: 1/2 pack Frequency of use: Daily Substance route: Smoking Date of Last Use: 02/23/20 (started age 15) - Last Treatment Date of last treatment: 10/28/16-10/30/16 discharged AMA Treatment type: Substance Use Disorder (SHELBIE) Where was last treatment: Detox Physical/Psych/Mental Status - Behavior General Behavior: Increased activity (restlessness, agitation) Eye Contact: Normal - Cooperativeness Cooperativeness: Cooperative - Thinking Thought Processes: Tight, Logical, Goal Directed - Physical Health Problems Is patient presently having any pain?: No Does patient presently have any injuries (include location): No Does patient currently have a fever: No Is patient : No COWS - Scale Resting Pulse: 0= [place] 80 or Below Sweatin= Beads of Sweat on Face Restless Observation: 1= Difficult to Sit Still Pupil Size: 2= Moderately Dilated Bone or Joint Aches: 2= Severe Diffuse Aches Runny Nose/ Eye Tearin= Runny Nose/Eyes GI Upset > 30mins: 3= Vomiting/Diarrhea Tremor Observation: 4= Gross Tremor/Twitching Yawning Observation: 2= >3x During Session Anxiety or Irritability: 1=Feels Anxious/Irritable Goose Flesh Skin: 3=Piloerection COWS Score: 23
--- NOTE | 2020-02-23 10:44 | HP ---
COWS - Scale Resting Pulse: 0= [place] 80 or Below Sweatin= Beads of Sweat on Face Restless Observation: 1= Difficult to Sit Still Pupil Size: 2= Moderately Dilated Bone or Joint Aches: 2= Severe Diffuse Aches Runny Nose/ Eye Tearin= Runny Nose/Eyes GI Upset > 30mins: 3= Vomiting/Diarrhea Tremor Observation: 4= Gross Tremor/Twitching Yawning Observation: 2= >3x During Session Anxiety or Irritability: 1=Feels Anxious/Irritable Goose Flesh Skin: 3=Piloerection COWS Score: 23 CIWA Score - Admission Criteria [facility]ASAS Guidelines: Admission for Medically Managed Detox: Requires at least one of the followin. CIWA greater than 12 2. Seizures within the past 24 hours 3. Delirium tremens within the past 24 hours 4. Hallucinations within the past 24 hours 5. Acute intervention needed for co occurring medical disorder 6. Acute intervention needed for co occurring psychiatric disorder 7. Severe withdrawal that cannot be handled at a lower level of care (continued vomiting, continued diarrhea, abnormal vital signs) requiring intravenous medication and/or fluids 8. Admitting History and Physical - Admission Chief Complaint: Mr. Gonzalez is a 29 yo gentleman who presents to [facility] requesting detox from heroin. History of Present Illness: Mr. Gonzalez is a 29 yo gentleman who presents to [facility] requesting detox from heroin. He was sober for 3 years and relapsed 3 mos ago. PMH:PSH:Legal: none Psych: ADHD, depression, no SI, no SA Substance Use History Heroin Substance amount: 2 grams Frequency of use: Daily Substance route: Injection (ex: intravenous or skin popping) Date of Last Use: 02/22/20 (started age 22) OD x 5, last was in 2014 No narcan at home Nicotine Substance amount: 1/2 pack Frequency of use: Daily Substance route: Smoking Date of Last Use: 02/23/20 (started age 15) Suboxone 2012 to 2013 - Last Treatment Date of last treatment: 10/28/16-10/30/16 discharged AMA Treatment type: Substance Use Disorder (SHELBIE) Where was last treatment: Detox History Source: Patient Limitations to Obtaining History: No Limitations - Smoking History Smoking history: Current every day smoker Have you smoked in the past 12 months: Yes Aproximately how many cigarettes per day: 10 - Alcohol/Substance Use Hx Alcohol Use: No Admission ROS BHS - HPI Allergies/Adverse Reactions: Allergies Allergy/AdvReac Type Severity Reaction Status Date / Time Penicillins Allergy Severe Hives Verified 02/23/20 10:40 Exam Limitations: No Limitations - Ebola screening Have you traveled outside of the country in the last 21 days: No Have you been sick,other than usual withdrawal symptoms: No Do you have a fever: No - Review of Systems Constitutional: Malaise EENT: reports: Nose Congestion Respiratory: reports: No Symptoms reported Cardiac: reports: No Symptoms Reported GI: reports: Diarrhea, Nausea : reports: No Symptoms Reported Musculoskeletal: reports: No Symptoms Reported Integumentary: reports: No Symptoms Reported Hematology: reports: No Symptoms Reported Psychiatric: reports: Anxious Patient History - Patient Medical History Hx Anemia: No Hx Asthma: No Hx Chronic Obstructive Pulmonary Disease (COPD): No Hx Cancer: No Hx Cardiac Disorders: No Hx Congestive Heart Failure: No Hx Hypertension: No Hx Hypercholesterolemia: No Hx Pacemaker: No HX Cerebrovascular Accident: No Hx Seizures: No Hx Dementia: No Hx Diabetes: No Hx Gastrointestinal Disorders: No Hx Liver Disease: No Hx Genitourinary Disorders: No Hx Sexually Transmitted Disorders: No Hx Renal Disease (ESRD): No Hx Thyroid Disease: No Hx Human Immunodeficiency Virus (HIV): No (NEGATIVE HX;06/2016) Hx Hepatitis C: No (NEGATIVE HX;06/2016) Hx Depression: Yes (ADHD) Hx Suicide Attempt: No (DENIES) Hx Bipolar Disorder: No Hx Schizophrenia: No - Patient Surgical History Past Surgical History: No Hx Neurologic Surgery: No Hx Cataract Extraction: No Hx Cardiac Surgery: No Hx Lung Surgery: No Hx Breast Surgery: No Hx Breast Biopsy: No Hx Abdominal Surgery: No Hx Appendectomy: No Hx Cholecystectomy: No Hx Genitourinary Surgery: No Hx Section: No Hx Orthopedic Surgery: No Anesthesia Reaction: No - PPD History Date: 07/15/16 Results: 0 mm - Smoking Cessation Smoking history: Current every day smoker Have you smoked in the past 12 months: Yes Aproximately how many cigarettes per day: 10 Cigars Per Day: 0 Hx Chewing Tobacco Use: No Initiated information on smoking cessation: Yes 'Breaking Loose' booklet given: 02/23/20 Admission Physical Exam BHS - Vital Signs Vital Signs: vs 137/78, HR 70, RR 12, temp 96.8 UDS: THC, FEN, MOP - Physical General Appearance: Yes: Nourished, Appropriately Dressed, Mild Distress (withdrawal, diaphoretic) HEENTM: Yes: EOMI, Hearing grossly Normal, Normocephalic, Normal Voice Respiratory: Yes: Lungs Clear, No Respiratory Distress, No Accessory Muscle Use Neck: Yes: Within Normal Limits, Supple Breast: Yes: Breast Exam Deferred Cardiology: Yes: Regular Rhythm, Regular Rate Abdominal: Yes: Normal Bowel Sounds, Non Tender, Flat, Soft Genitourinary: Yes: Other (deferred) Back: Yes: Normal Inspection Musculoskeletal: Yes: Gait Steady Extremities: Yes: Normal Inspection, Non-Tender Neurological: Yes: Alert, Normal Response Integumentary: Yes: Normal Color, Dry, Warm, Track Johns (sites in hands and feet clean) - Diagnostic (1) Anxiety and depression Current Visit: Yes Status: Chronic (2) Nicotine dependence Current Visit: Yes Status: Acute Qualifiers: Nicotine product type: cigarettes Substance use status: uncomplicated Qualified Code(s): F17.210 - Nicotine dependence, cigarettes, uncomplicated (3) Opioid dependence with withdrawal Current Visit: Yes Status: Acute Cleared for Admission [facility] - Detox or Rehab [facility] Level of Care: Medically Managed Detox Regimen/Protocol: Methadone Inpatient Rehab Admission - Rehab Decision to Admit Inpatient rehab admission?: No
[2020-02-23] MEDS ORDERED: ACETAMINOPHEN 325 MG TABLET (FP) PO PRN ×2 (10:47)
[2020-02-23] MEDS ORDERED: MAGNESIUM HYDROX 2400MG/30ML ORAL SUSPENSION 30 ML CUP PO PRN (10:47)
[2020-02-23] MEDS ORDERED: ONDANSETRON *ODT* 4 MG TABLET SL PRN (10:47)
[2020-02-23] MEDS ORDERED: MENTHOL/PHENOL 1 EACH UD MM PRN (10:47)
[2020-02-23] MEDS ORDERED: MAG HYDROX/AL HYDROX/SIMETH 30 ML UNIT-DOSE CUP PO PRN (10:47)
[2020-02-23] MEDS ORDERED: MAGNESIUM CITRATE 300 ML BOTTLE PO PRN (10:47)
[2020-02-23] MEDS ORDERED: NICOTINE POLACRILEX 2 MG GUM BUC PRN (10:47)
[2020-02-23] MEDS ORDERED: BISMUTH SUBSALICYLATE 262 MG/15 ML BTL PO PRN (10:47)
[2020-02-23] MEDS ORDERED: METHADONE HCL 10 MG TABLET (FOR DETOX USE ONLY) PO ONE (10:47)
[2020-02-23] MEDS ORDERED: cloNIDine HCL 0.1 MG TABLET PO PRN (10:47)
[2020-02-23] MEDS ORDERED: IBUPROFEN 400 MG TABLET (FP) PO PRN (10:47)
[2020-02-23 10:49] VITALS: BMI 28.5
[2020-02-23] MEDS: NICOTINE 14 MG/24 HOURS TOPICAL PATCH TD SCH (11:33)
[2020-02-23] MEDS ORDERED: hydrOXYzine PAMOATE 25 MG CAPSULE (FP) PO SCH (14:00)
--- NOTE | 2020-02-23 14:01 | EKG ---
Test Reason : Blood Pressure : / mmHG Vent. Rate : 057 BPM Atrial Rate : 057 BPM P-R Int : 122 ms QRS Dur : 112 ms QT Int : 422 ms P-R-T Axes : 063 081 040 degrees QTc Int : 410 ms SINUS BRADYCARDIA OTHERWISE NORMAL ECG WHEN COMPARED WITH ECG OF 28-OCT-2016 14:48, NO SIGNIFICANT CHANGE WAS FOUND Confirmed by JARRED SINGH MD ([id number]) on 02/23/2020 2:00:51 PM Referred By: Confirmed By:JARRED SINGH MD
[2020-02-23 14:55] LABS: HEMATOCRIT 39.5 % (35.4-49); HEMOGLOBIN 12.7 GM/dL (11.7-16.9); MCH 28.4 pg (25.7-33.7); MCHC 32.3 g/dl (32.0-35.9); MEAN CELL VOLUME 87.9 fl (80-96); MEAN PLT VOLUME 9.2 fl (7.5-11.1); PLATELET COUNT 224 K/MM3 (134-434); RBC 4.49 M/mm3 (4.00-5.60); RDW 15.4 % (11.9-15.9); WHITE BLOOD COUNT 6.9 K/mm3 (4.0-10.0)
[2020-02-23 15:06] LABS: BILIRUBIN,TOTAL 0.4 mg/dL (0.2-1); BLOOD UREA NITROGEN 14.9 mg/dL (7-18); CALCIUM 9.8 mg/dL (8.5-10.1); CREATININE 0.9 mg/dL (0.55-1.3); POTASSIUM 4.3 mmol/L (3.5-5.1); TOT PROT 8.4 g/dl (6.4-8.2)
[2020-02-23] MEDS: hydrOXYzine PAMOATE 25 MG CAPSULE (FP) PO PRN (22:31)
[2020-02-23] MEDS: THIAMINE HCL 100 MG TABLET (FP) PO SCH (22:31)
[2020-02-23] MEDS: diazePAM 5 MG TABLET PO PRN (22:32)
[2020-02-23] MEDS: MELATONIN 5 MG TABLETS PO SCH (22:35)
[2020-02-24] MEDS ORDERED: METHADONE HCL 10 MG TABLET (FOR DETOX USE ONLY) ONE (09:36)
[2020-02-24] MEDS ORDERED: METHADONE HCL 5 MG TABLET (FOR DETOX USE ONLY) ONE (09:36)
[2020-02-24] MEDS ORDERED: METHADONE (DETOX) 20 MG, METHADONE (DETOX) 5 MG PO ONE (10:00)
[2020-02-24] MEDS: diazePAM 5 MG TABLET PO PRN ×2 (10:29→22:47)
[2020-02-24] MEDS: PRENATAL VITAMINS W/ FOLIC ACID TABLET (FP) PO SCH (10:29)
[2020-02-24] MEDS: NICOTINE 14 MG/24 HOURS TOPICAL PATCH TD SCH (10:29)
[2020-02-24] MEDS: METHOCARBAMOL 500 MG TABLET PO PRN (10:29)
--- NOTE | 2020-02-24 12:29 | PN ---
S CIWA - CIWA Score Nausea/Vomitin-Mild Nausea/No Vomiting Muscle Tremors: 3 Anxiety: 3 Agitation: 3 Paroxysmal Sweats: 1-Minimal Palms Moist Orientation: 0-Oriented Tacttile Disturbances: 1-Very Mild Itch/Numbness Auditory Disturbances: 0-None Visual Disturbances: 0-None Headache: 2-Mild CIWA-Ar Total Score: 14 BHS Progress Note (SOAP) Subjective: alert,irritable,anxious,interrupted sleep,tremor,pain in the body and ba ck,interrupted sleep,nause,no vomiting Objective: 02/24/20 12:31 Vital Signs Temperature 96.8 F L 02/24/20 08:55 Pulse Rate 68 02/24/20 08:55 Respiratory Rate 17 02/24/20 08:55 Blood Pressure 140/94 02/24/20 08:55 O2 Sat by Pulse Oximetry (%) 99 02/24/20 08:55 Laboratory Last Values WBC 6.9 K/mm3 (4.0-10.0) 02/23/20 11:05 RBC 4.49 M/mm3 (4.00-5.60) 02/23/20 11:05 Hgb 12.7 GM/dL (11.7-16.9) 02/23/20 11:05 Hct 39.5 % (35.4-49) 02/23/20 11:05 MCV 87.9 fl (80-96) 02/23/20 11:05 MCH 28.4 pg (25.7-33.7) 02/23/20 11:05 MCHC 32.3 g/dl (32.0-35.9) 02/23/20 11:05 RDW 15.4 % (11.9-15.9) D 02/23/20 11:05 Plt Count 224 K/MM3 (134-434) 02/23/20 11:05 MPV 9.2 fl (7.5-11.1) 02/23/20 11:05 Sodium 138 mmol/L (136-145) 02/23/20 11:05 Potassium 4.3 mmol/L (3.5-5.1) 02/23/20 11:05 Chloride 105 mmol/L (98-107) 02/23/20 11:05 Carbon Dioxide 27 mmol/L (21-32) 02/23/20 11:05 Anion Gap 6 MMOL/L (8-16) L 02/23/20 11:05 BUN 14.9 mg/dL (7-18) 02/23/20 11:05 Creatinine 0.9 mg/dL (0.55-1.3) 02/23/20 11:05 Est GFR (CKD-EPI)AfAm 132.37 02/23/20 11:05 Est GFR (CKD-EPI)NonAf 114.21 02/23/20 11:05 Random Glucose 106 mg/dL (74-106) 02/23/20 11:05 Calcium 9.8 mg/dL (8.5-10.1) 02/23/20 11:05 Total Bilirubin 0.4 mg/dL (0.2-1) 02/23/20 11:05 AST 12 U/L (15-37) L 02/23/20 11:05 ALT 17 U/L (13-61) 02/23/20 11:05 Alkaline Phosphatase 84 U/L (45-117) 02/23/20 11:05 Total Protein 8.4 g/dl (6.4-8.2) H 02/23/20 11:05 Albumin 4.0 g/dl (3.4-5.0) 02/23/20 11:05 Syphilis Serology Non-reactive (NONREACTIVE) 02/23/20 11:05 COVID-19 (GUY) Not detected (Not Detected) 02/23/20 11:05 Assessment: 02/24/20 12:34 withdrawal symptom Plan: continue detox methadone regimen,valium 10 mgs po q 4 hours prn for 72 hrs
[2020-02-24] MEDS: MELATONIN 5 MG TABLETS PO SCH (22:47)
[2020-02-24] MEDS: THIAMINE HCL 100 MG TABLET (FP) PO SCH (22:47)
[2020-02-25] MEDS ORDERED: METHADONE HCL 10 MG TABLET (FOR DETOX USE ONLY) PO ONE (10:00)
[2020-02-25] MEDS: NICOTINE 14 MG/24 HOURS TOPICAL PATCH TD SCH (10:30)
[2020-02-25] MEDS: PRENATAL VITAMINS W/ FOLIC ACID TABLET (FP) PO SCH (10:31)
[2020-02-25] MEDS: METHOCARBAMOL 500 MG TABLET PO PRN ×2 (10:32→22:21)
[2020-02-25] MEDS: hydrOXYzine PAMOATE 25 MG CAPSULE (FP) PO PRN ×2 (10:32→22:21)
--- NOTE | 2020-02-25 16:44 | PN ---
BHS COWS - Scale Resting Pulse: 0= [place] 80 or Below Sweatin= Chills/Flushing Restless Observation: 1= Difficult to Sit Still Pupil Size: 0= Normal to Room Light Bone or Joint Aches: 2= Severe Diffuse Aches Runny Nose/ Eye Tearin= None GI Upset > 30mins: 0= None Tremor Observation of Outstretched Hands: 0= None Yawning Observation: 1= 1-2x During Session Anxiety or Irritability: 2=Irritable/Anxious Goose Flesh Skin: 3=Piloerection COWS Score: 10 BHS Progress Note (SOAP) Subjective: Insomnia, Sweating, Chills, Poor Appetite, Body Aches. Objective: Patient A & O X 3, Observed Ambulating on Detox Unit Unassisted. In No Acute Distress. 02/25/20 16:41 Vital Signs Temperature 97.5 F L 02/25/20 12:42 Pulse Rate 50 L 02/25/20 12:42 Respiratory Rate 18 02/25/20 12:42 Blood Pressure 128/63 02/25/20 12:42 O2 Sat by Pulse Oximetry (%) 100 02/25/20 12:42 Laboratory Tests 02/23/20 02/23/20 02/23/20 11:05 11:05 11:05 WBC 6.9 RBC 4.49 Hgb 12.7 Hct 39.5 MCV 87.9 MCH 28.4 MCHC 32.3 RDW 15.4 D Plt Count 224 MPV 9.2 Sodium 138 Potassium 4.3 Chloride 105 Carbon Dioxide 27 Anion Gap 6 L BUN 14.9 Creatinine 0.9 Est GFR (CKD-EPI)AfAm 132.37 Est GFR (CKD-EPI)NonAf 114.21 Random Glucose 106 Calcium 9.8 Total Bilirubin 0.4 AST 12 L ALT 17 Alkaline Phosphatase 84 Total Protein 8.4 H Albumin 4.0 Syphilis Serology Non-reactive COVID-19 (GUY) 02/23/20 11:05 WBC RBC Hgb Hct MCV MCH MCHC RDW Plt Count MPV Sodium Potassium Chloride Carbon Dioxide Anion Gap BUN Creatinine Est GFR (CKD-EPI)AfAm Est GFR (CKD-EPI)NonAf Random Glucose Calcium Total Bilirubin AST ALT Alkaline Phosphatase Total Protein Albumin Syphilis Serology COVID-19 (GUY) Not detected Lab results noted. Assessment: 02/25/20 16:41 WITHDRAWAL SYMPTOMS. Plan: Continue Detox. PRN Robaxin PO for Body Aches / muscle spasms. Patient reports poor effect from Melatonin, 5 mg last night for relief of Insomnia, increase dose to 10 mg HS PRN.
[2020-02-25] MEDS: diazePAM 5 MG TABLET PO PRN (20:01)
[2020-02-25] MEDS: THIAMINE HCL 100 MG TABLET (FP) PO SCH (22:19)
[2020-02-25] MEDS: MELATONIN 5 MG TABLETS PO PRN (22:19)
[2020-02-26] MEDS ORDERED: METHADONE HCL 5 MG TABLET (FOR DETOX USE ONLY) ONE (09:45)
[2020-02-26] MEDS ORDERED: METHADONE HCL 10 MG TABLET (FOR DETOX USE ONLY) ONE (09:45)
[2020-02-26] MEDS ORDERED: METHADONE (DETOX) 10 MG, METHADONE (DETOX) 5 MG PO ONE (10:00)
[2020-02-26] MEDS: NICOTINE 14 MG/24 HOURS TOPICAL PATCH TD SCH (10:41)
[2020-02-26] MEDS: PRENATAL VITAMINS W/ FOLIC ACID TABLET (FP) PO SCH (10:41)
[2020-02-26] MEDS: hydrOXYzine PAMOATE 25 MG CAPSULE (FP) PO PRN ×2 (10:42→22:33)
--- NOTE | 2020-02-26 15:01 | PN ---
BHS COWS - Scale Resting Pulse: 0= [place] 80 or Below Sweatin= Chills/Flushing Restless Observation: 0= Sits Still Pupil Size: 0= Normal to Room Light Bone or Joint Aches: 1= Mild Discomfort Runny Nose/ Eye Tearin= Nasal Congestion GI Upset > 30mins: 1= Stomach Cramp Tremor Observation of Outstretched Hands: 2= Slight Tremor Visible Yawning Observation: 0= None Anxiety or Irritability: 1=Feels Anxious/Irritable Goose Flesh Skin: 0=Smooth Skin COWS Score: 7 BHS Progress Note (SOAP) Subjective: Feels ok Objective: 02/26/20 14:58 Last Vital Signs Temp Pulse Resp BP Pulse Ox 98.2 F 60 18 132/73 99 02/26/20 12:44 02/26/20 12:44 02/26/20 12:44 02/26/20 12:44 02/26/20 12:44 Elevated b/p: denies htn Laboratory Tests 02/23/20 02/23/20 02/23/20 11:05 11:05 11:05 WBC 6.9 RBC 4.49 Hgb 12.7 Hct 39.5 MCV 87.9 MCH 28.4 MCHC 32.3 RDW 15.4 D Plt Count 224 MPV 9.2 Sodium 138 Potassium 4.3 Chloride 105 Carbon Dioxide 27 Anion Gap 6 L BUN 14.9 Creatinine 0.9 Est GFR (CKD-EPI)AfAm 132.37 Est GFR (CKD-EPI)NonAf 114.21 Random Glucose 106 Calcium 9.8 Total Bilirubin 0.4 AST 12 L ALT 17 Alkaline Phosphatase 84 Total Protein 8.4 H Albumin 4.0 Syphilis Serology Non-reactive COVID-19 (GUY) 02/23/20 11:05 WBC RBC Hgb Hct MCV MCH MCHC RDW Plt Count MPV Sodium Potassium Chloride Carbon Dioxide Anion Gap BUN Creatinine Est GFR (CKD-EPI)AfAm Est GFR (CKD-EPI)NonAf Random Glucose Calcium Total Bilirubin AST ALT Alkaline Phosphatase Total Protein Albumin Syphilis Serology COVID-19 (GUY) Not detected Labs reviewed Assessment: 02/26/20 15:00 Withdrawal sxs Noted with elevated b/p Plan: Continue detox Encourage PO water intake Elevated b/p: denies htn, monitor b/p
[2020-02-26] MEDS: THIAMINE HCL 100 MG TABLET (FP) PO SCH (22:33)
[2020-02-26] MEDS: METHOCARBAMOL 500 MG TABLET PO PRN (22:34)
[2020-02-26] MEDS: MELATONIN 5 MG TABLETS PO PRN (22:35)
[2020-02-27] MEDS ORDERED: METHADONE HCL 10 MG TABLET (FOR DETOX USE ONLY) PO ONE (10:00)
[2020-02-27] MEDS: PRENATAL VITAMINS W/ FOLIC ACID TABLET (FP) PO SCH (10:28)
[2020-02-27] MEDS: NICOTINE 14 MG/24 HOURS TOPICAL PATCH TD SCH (10:28)
--- NOTE | 2020-02-27 15:52 | PN ---
BHS COWS - Scale Resting Pulse: 1= [place] 81-100 Sweatin= No chills or Flushing Restless Observation: 0= Sits Still Pupil Size: 0= Normal to Room Light Bone or Joint Aches: 1= Mild Discomfort Runny Nose/ Eye Tearin= Nasal Congestion GI Upset > 30mins: 1= Stomach Cramp Tremor Observation of Outstretched Hands: 2= Slight Tremor Visible Yawning Observation: 0= None Anxiety or Irritability: 2=Irritable/Anxious Goose Flesh Skin: 0=Smooth Skin COWS Score: 8 BHS Progress Note (SOAP) Subjective: alert,irritable,anxious,pain n the body and back,nausea Objective: 02/27/20 15:51 Vital Signs Temperature 97.3 F L 02/27/20 08:59 Pulse Rate 72 02/27/20 08:59 Respiratory Rate 19 02/27/20 08:59 Blood Pressure 138/57 L 02/27/20 08:59 O2 Sat by Pulse Oximetry (%) 100 02/27/20 08:59 Assessment: 02/27/20 15:51 withdrawal symptom Plan: continue detox methadone regimen,discharge in am
[2020-02-27] MEDS: MELATONIN 5 MG TABLETS PO PRN (22:17)
[2020-02-27] MEDS: hydrOXYzine PAMOATE 25 MG CAPSULE (FP) PO PRN (22:20)
[2020-02-27] MEDS: METHOCARBAMOL 500 MG TABLET PO PRN (22:20)
[2020-02-27] MEDS: THIAMINE HCL 100 MG TABLET (FP) PO SCH (22:20)
[2020-02-28] MEDS ORDERED: METHADONE HCL 5 MG TABLET (FOR DETOX USE ONLY) PO ONE (06:00)
[2020-02-28 07:41] VITALS: BP 133/70; PULSE 43; TEMP 97.3
--- NOTE | 2020-02-28 10:04 | PN ---
[facility] CIWA - CIWA Score Nausea/Vomitin-No Nausea/No Vomiting Muscle Tremors: None Anxiety: 1-Mildly Anxious Agitation: 0-Normal Activity Paroxysmal Sweats: No Perspiration Orientation: 0-Oriented Tacttile Disturbances: 0-None Auditory Disturbances: 0-None Visual Disturbances: 0-None Headache: 0-None Present CIWA-Ar Total Score: 1 S Progress Note (SOAP) Subjective: alert,no complaint Objective: 02/28/20 09:59 Vital Signs Temperature 97.3 F L 02/28/20 05:33 Pulse Rate 43 L 02/28/20 05:33 Respiratory Rate 16 02/28/20 05:33 Blood Pressure 133/70 02/28/20 05:33 O2 Sat by Pulse Oximetry (%) 96 02/28/20 05:33 Assessment: 02/28/20 10:02 detox completed,no withdrawal symptom Plan: stable for discharge today,follow up with after care program as arrangement
--- NOTE | 2020-02-28 10:05 | DS ---
[facility] Detox Discharge Summary Admission Date: 02/23/20 Discharge Date: 02/28/20 - History Present History: Cannabis Dependence, Cocaine Dependence, Opioid Dependence Additional Comments: alert,oriented x 3 ambulation on the unit lung clear on auscultation bilaterally abdomen soft,no pain,no tenderness stable for discharge today declined rehab patient plan to relocate in [place] left the unit in stable condition total time of discharge 35 minutes Pertinent Past History: ivdu - Physical Exam Results Vital Signs: Vital Signs Temperature 97.3 F L 02/28/20 05:33 Pulse Rate 43 L 02/28/20 05:33 Respiratory Rate 16 02/28/20 05:33 Blood Pressure 133/70 02/28/20 05:33 O2 Sat by Pulse Oximetry (%) 96 02/28/20 05:33 Pertinent Admission Physical Exam Findings: withdrawal signs and symptom Laboratory Last Values WBC 6.9 K/mm3 (4.0-10.0) 02/23/20 11:05 RBC 4.49 M/mm3 (4.00-5.60) 02/23/20 11:05 Hgb 12.7 GM/dL (11.7-16.9) 02/23/20 11:05 Hct 39.5 % (35.4-49) 02/23/20 11:05 MCV 87.9 fl (80-96) 02/23/20 11:05 MCH 28.4 pg (25.7-33.7) 02/23/20 11:05 MCHC 32.3 g/dl (32.0-35.9) 02/23/20 11:05 RDW 15.4 % (11.9-15.9) D 02/23/20 11:05 Plt Count 224 K/MM3 (134-434) 02/23/20 11:05 MPV 9.2 fl (7.5-11.1) 02/23/20 11:05 Sodium 138 mmol/L (136-145) 02/23/20 11:05 Potassium 4.3 mmol/L (3.5-5.1) 02/23/20 11:05 Chloride 105 mmol/L (98-107) 02/23/20 11:05 Carbon Dioxide 27 mmol/L (21-32) 02/23/20 11:05 Anion Gap 6 MMOL/L (8-16) L 02/23/20 11:05 BUN 14.9 mg/dL (7-18) 02/23/20 11:05 Creatinine 0.9 mg/dL (0.55-1.3) 02/23/20 11:05 Est GFR (CKD-EPI)AfAm 132.37 02/23/20 11:05 Est GFR (CKD-EPI)NonAf 114.21 02/23/20 11:05 Random Glucose 106 mg/dL (74-106) 02/23/20 11:05 Calcium 9.8 mg/dL (8.5-10.1) 02/23/20 11:05 Total Bilirubin 0.4 mg/dL (0.2-1) 02/23/20 11:05 AST 12 U/L (15-37) L 02/23/20 11:05 ALT 17 U/L (13-61) 02/23/20 11:05 Alkaline Phosphatase 84 U/L (45-117) 02/23/20 11:05 Total Protein 8.4 g/dl (6.4-8.2) H 02/23/20 11:05 Albumin 4.0 g/dl (3.4-5.0) 02/23/20 11:05 Syphilis Serology Non-reactive (NONREACTIVE) 02/23/20 11:05 COVID-19 (GUY) Not detected (Not Detected) 02/23/20 11:05 - Treatment Hospital Course: Detox Protocol Followed, Detoxed Safely, Responded well, Discharged Condition Good Patient has Accepted a Rehab Referral to: declined - Medication Discharge Medications: Ambulatory Orders NK [No Known Home Medication] 10/28/16 - Diagnosis (1) Opioid dependence with withdrawal Status: Acute (2) Cannabis dependence, uncomplicated Status: Acute (3) Cocaine dependence Status: Acute (4) Nicotine dependence Status: Acute Qualifiers: Nicotine product type: cigarettes Substance use status: uncomplicated Qualified Code(s): F17.210 - Nicotine dependence, cigarettes, uncomplicated (5) IVDU (intravenous drug user) Status: Acute - AMA Did Patient Leave Against Medical Advice: No
--- NOTE | 2020-02-28 10:19 | PN ---
BHS COWS - Scale Resting Pulse: 0= [place] 80 or Below Sweatin= No chills or Flushing Restless Observation: 0= Sits Still Pupil Size: 0= Normal to Room Light Bone or Joint Aches: 0= None Runny Nose/ Eye Tearin= None GI Upset > 30mins: 0= None Tremor Observation of Outstretched Hands: 0= None Yawning Observation: 0= None Anxiety or Irritability: 1=Feels Anxious/Irritable Goose Flesh Skin: 0=Smooth Skin COWS Score: 1 BHS Progress Note (SOAP) Subjective: alert,no complaint Objective: 02/28/20 10:15 Vital Signs Temperature 97.3 F L 02/28/20 05:33 Pulse Rate 43 L 02/28/20 05:33 Respiratory Rate 16 02/28/20 05:33 Blood Pressure 133/70 02/28/20 05:33 O2 Sat by Pulse Oximetry (%) 96 02/28/20 05:33 Assessment: 02/28/20 10:15 detox completed,no withdrawal symptom Plan: stable for discharge today,declined rehab,follow up with after care program as arrangement by counselor,patient may relocate in [place],decline rehab, please disregard the note on this patient at 9.59 am
== END 2020-02-28 08:50 | disposition home or self-care (01) | DRG 773 ==
LOC: YASAS 10:15 → Y6N 10:52
PROVIDERS: ADMIT Allergy & Immunology; ATTEND Allergy & Immunology
PROC: HZ2ZZZZ Detoxification Services for Substance Abuse Treatment (ICD-10-PCS; principal; 2020-02-23)
DX: F11.23 Opioid dependence with withdrawal (principal); F14.20 Cocaine dependence, uncomplicated; F12.20 Cannabis dependence, uncomplicated; F17.210 Nicotine dependence, cigarettes, uncomplicated; F41.9 Anxiety disorder, unspecified; F32.9 Major depressive disorder, single episode, unspecified; F90.9 Attention-deficit hyperactivity disorder, unspecified type; Z88.0 Allergy status to penicillin; Z59.0 Homelessness
CPT/HCPCS: 36415; 80053; 85027; 86780; 93005; 93010; U0003